=== PATIENT | female | born 1955 | race Caucasian/White ===

== ENCOUNTER 2019-06-16 10:16 | Observation (INO) | payer OTHER, SELFPAY ==
[~2019-06-16] VITALS: Ht 162.6 cm; Wt 68.0 kg
[~2019-06-16 10:16] MED LIST: CYAN3000 SL; DIAZ10TA4 PO; DISU250T PO; FOLI0.4T2 PO; FURO40TA5 PO; LACT10SO9 PO; LEVE500T19 PO; MULT-1039 PO; PANT40SU PO; POTA10TA14 PO; POTASSIUM GLUCONATE PO; PRED20TA3 PO; SPIR25TA6 PO; THIA100T78 PO
[2019-06-16 10:42] LABS: BASOPHILS % (AUTO) 0.6 % (0.0-5.0); EOSINOPHILS % (AUTO) 0.5 % (0.0-8.0); HEMATOCRIT 28.6 % (36-48); MEAN CORPUSCULAR HEMOGLOBIN 43.8 pg (27.0-33.0); MEAN CORPUSCULAR HGB CONC 34.6 g/dL (32.0-36.0); MEAN CORPUSCULAR VOLUME 126.5 fL (79-99); MONOCYTES % (AUTO) 8.1 % (3.0-13.0); NEUTROPHILS % (AUTO) 75.8 % (40.0-77.0); NUCLEATED RED BLOOD CELLS 0.1 % (0.0-0.19); PLATELET COUNT (AUTO) 142 K/uL (130-400); RED BLOOD CELL COUNT(AUTO) 2.26 MIL/uL (4.00-5.50); RED CELL DISTRIBUTION WIDTH 15.9 % (11.0-15.5); WHITE BLOOD COUNT (AUTO) 6.3 K/uL (4.8-10.8)
[2019-06-16 10:47] LABS: CREATININE 1.3 mg/dL (0.5-1.5); POTASSIUM 3.8 mmol/L (3.5-5.1)
[2019-06-16 10:50] LABS: ALANINE AMINOTRANSFERASE 95 U/L (12-78); ALBUMIN 3.1 g/dL (3.5-5.0); AMMONIA < 3 umol/L (11-32); ASPARTATE AMINOTRANSFERASE 210 U/L (10-37); BILIRUBIN,DIRECT 1.9 mg/dL (0.0-0.3); BILIRUBIN,TOTAL 3.8 mg/dL (0.2-1.0)
[2019-06-16] MEDS ORDERED: SODIUM CHLORIDE 0.9% 500ML 500 ML IV ONE (10:55)
[2019-06-16] MEDS ORDERED: ONDANSETRON HCL 4 MG/2 ML VIAL ONE (10:55)
[2019-06-16 11:10] LABS: APPEARANCE,URINE Cloudy (CLEAR); BILIRUBIN,URINE Small (NEGATIVE); COLOR,URINE Dark Yellow (YELLOW); GLUCOSE, URINE (UA) Negative (NEGATIVE); KETONES,URINE Negative (NEGATIVE); LEUKOCYTE ESTERASE ,URINE Small (NEGATIVE); NITRATE,URINE Negative (NEGATIVE); OCCULT BLOOD,URINE Large (NEGATIVE); PROTEIN,URINE Negative (NEGATIVE)
[2019-06-16 11:30] LABS: BACTERIA,URINE Few /HPF (None Seen); RBC,URINE 26-50 /HPF (0-1); SQUAMOUS EPITHELIAL CELL,UR 0-2 /HPF (0-2)
[2019-06-16 11:37] LABS: INR 1.28 (0.85-1.15); PARTIAL THROMBOPLASTIN TIME 32.4 SEC (26.3-35.5); PROTHROMBIN TIME 13.4 SEC (9.6-11.6)
[2019-06-16 13:50] VITALS: BP 119/65
[2019-06-16] MEDS ORDERED: ACETAMINOPHEN 325 MG TAB PO PRN (14:00)
[2019-06-16] MEDS ORDERED: LACTULOSE 20 GM/30 ML UDCUP PO PRN (14:00)
[2019-06-16] MEDS ORDERED: CEFTRIAXONE SODIUM 1 GM IV SCH (14:00)
[2019-06-16] MEDS ORDERED: HYDRALAZINE HCL 20 MG/ML VIAL IV PRN (14:00)
[2019-06-16 14:10] VITALS: BP 131/62
[2019-06-16 14:15] VITALS: BP 146/71
[2019-06-16 14:30] VITALS: BP 149/68
[2019-06-16 14:35] VITALS: BP 147/67
[2019-06-16] MEDS ORDERED: LACTULOSE 20 GM/30 ML UDCUP ONE (15:17)
[2019-06-16] MEDS ORDERED: MAGNESIUM CITRATE 296 ML SOLUTION ONE (15:17)
[2019-06-16] MEDS ORDERED: PANTOPRAZOLE SODIUM 40 MG TABLET.DR PO ONE (15:17)
[2019-06-16 15:36] LABS: HEMATOCRIT 25.3 % (36-48)
[2019-06-16] MEDS ORDERED: PEG 3350/NA SULF,BICARB,CL/KCL 4000 ML SOLN PO SCH (16:00)
[2019-06-16] MEDS ORDERED: CEFTRIAXONE SODIUM 1 GM ONE (19:32)
[2019-06-16] MEDS ORDERED: SODIUM CHLORIDE 0.9% 50 ML IV ONE (19:33)
[2019-06-16] MEDS ORDERED: MAG HYDROX/AL HYDROX/SIMETH ES 30 ML SUSP UDCUP ONE (21:06)
[2019-06-16 21:32] LABS: HEMATOCRIT 26.8 % (36-48)
[2019-06-17] MEDS ORDERED: CEFTRIAXONE SODIUM 1 GM ONE (07:20)
[2019-06-17] MEDS ORDERED: SODIUM CHLORIDE 0.9% 100 ML IV ONE ×2 (07:21→10:18)
[2019-06-17] MEDS ORDERED: PANTOPRAZOLE SODIUM 80 MG in SODIUM CHLORIDE 0.9% 100 ML IV SCH (09:00)
[2019-06-17] MEDS ORDERED: PROPOFOL 10 MG/ML 20ML VIAL IV ONE (13:39)
[2019-06-17] MEDS ORDERED: LIDOCAINE HCL 1% 20 ML VIAL ONE (13:40)
[2019-06-17 14:10] VITALS: BP 148/72
[2019-06-17 14:15] VITALS: BP 147/76
[2019-06-17 14:20] VITALS: BP 147/78
--- NOTE | 2019-06-17 14:20 | NUR ---
PT TOOK OFF LEADS, BP CUFF, AND PULSE OX STATED SHE DID NOT WANT MONITOR ON. RN TRIED TALKING TO PT THAT WE NEED TO MONITOR V/S SHE JUST HAD SEDATION MEDICATIONS GIVEN DURING GI PROCEDURE. PT REFUSED, STATED SHE JUST WANTS TO BE DISCHARGED. JAI WATERMAN NOTIFIED OF PT'S STATUS. ORDERS GIVEN TO SEND PT TO IN 20 MINUTES, IF SHES AWAKE AND VS ARE STABLE. Addendum: 06/17/19 at 1449 by ERUM FREITAS RN RN Amended: Links added.
--- NOTE | 2019-06-17 14:30 | NUR ---
SHRINK PIT OPERATOR GARCIA GAVE INSTRUCTIONS TO SEND PT TO [facility] FOR DISCHARGE. GARCIA CAME AND SPOKE WITH PT. PT AGREED TO GO UPSTAIRS FOR DISCHARGE. Addendum: 06/17/19 at 1500 by ERUM FREITAS RN RN Amended: Links added.
--- NOTE | 2019-06-17 15:00 | NUR ---
PATIENT WAS RECEIVED FROM PACU TRANSPORTED BY JAYLENE WELLS VIA STRETCHER. PATIENT REFUSED TO TRANSFER TO BED. SHE DEMANDS TO BE DISCHARGED RIGHT AWAY. PATIENT REFUSED VITAL SIGNS AND ADMISSION DATA BASE. SHE TOLD NUTRITIONAL CHEMIST Trish ZELAYA RN THAT SHE WILL GIVE US 30MINUTES TO DISCHARGE HER.
--- NOTE | 2019-06-17 15:10 | NUR ---
PRESCRIPTION FOR PROTONIX 40MG PO BID CALLED IN TO [facility]. SPOKE WITH DEANA.
--- NOTE | 2019-06-17 15:15 | NUR ---
DISCHARGE INSTRUCTIONS/INFORMATION GIVEN TO PATIENT. TEACH BACK METHOD USED TO EDUCATE ON F/U APPOINTMENTS SHE WILL NEED TO SEE DR. GILL ONCE AGAIN. PIV REMOVED. ALL BELONGINGS WERE PACKED.
== END 2019-06-17 15:00 | disposition home or self-care (01) ==
LOC: EDH 10:16 → INTOOBSV 13:53 → EDHIP 13:53 → 4CH 06-17 13:32
PROVIDERS: ADMIT Internal Medicine; ATTEND Internal Medicine
DX: R14.0 Abdominal distension (gaseous) (principal); R10.31 Right lower quadrant pain; R10.32 Left lower quadrant pain; K74.60 Unspecified cirrhosis of liver; R19.4 Change in bowel habit; K92.1 Melena; R63.4 Abnormal weight loss; R63.0 Anorexia; R12 Heartburn; F17.200 Nicotine dependence, unspecified, uncomplicated; Z79.899 Other long term (current) drug therapy; Z68.25 Body mass index [BMI] 25.0-25.9, adult
CPT/HCPCS: 36415 ×2; 43239; 45380; 74176; 80048; 80076; 81001; 82140; 85014 ×3; 85018 ×3; 85025; 85060; 85610; 85730; 86677; 88305 ×2; 99285; G0378 ×25; J0696 ×2; J2405; J2704; J7040; C9113

== ENCOUNTER 2019-11-08 12:19 | Emergency (ER) | payer OTHER ==
[~2019-11-08 12:19] MED LIST changes: -CYAN3000 SL; -DIAZ10TA4 PO; -DISU250T PO; -FOLI0.4T2 PO; +FOLI1TAB15 PO; -FURO40TA5 PO; -LACT10SO9 PO; -LEVE500T19 PO; -MULT-1039 PO; +MVIT PO; +NACL1 PO; -PANT40SU PO; +PANT40TA PO; -POTA10TA14 PO; -POTASSIUM GLUCONATE PO; -PRED20TA3 PO; -SPIR25TA6 PO
[2019-11-08 13:08] LABS: BASOPHILS % (AUTO) 0.6 % (0.0-5.0); EOSINOPHILS % (AUTO) 1.8 % (0.0-8.0); HEMATOCRIT 23.1 % (36-48); LYMPHOCYTES % (AUTO) 27.9 % (21.0-51.0); MEAN CORPUSCULAR HEMOGLOBIN 38.2 pg (27.0-33.0); MEAN CORPUSCULAR HGB CONC 35.1 g/dL (32.0-36.0); MONOCYTES % (AUTO) 8.9 % (3.0-13.0); NEUTROPHILS % (AUTO) 60.3 % (40.0-77.0); PLATELET COUNT (AUTO) 99 K/uL (130-400); RED BLOOD CELL COUNT(AUTO) 2.12 MIL/uL (4.00-5.50); RED CELL DISTRIBUTION WIDTH 20.5 % (11.0-15.5); WHITE BLOOD COUNT (AUTO) 6.6 K/uL (4.8-10.8)
[2019-11-08 13:19] LABS: INR 1.35 (0.85-1.15); PARTIAL THROMBOPLASTIN TIME 34.1 SEC (26.3-35.5)
[2019-11-08 13:25] LABS: ALBUMIN 2.7 g/dL (3.5-5.0); BILIRUBIN,TOTAL 5.2 mg/dL (0.2-1.0); CREATININE 0.9 mg/dL (0.5-1.5); POTASSIUM 3.1 mmol/L (3.5-5.1); TOTAL PROTEIN, SERUM 6.6 g/dL (6.0-8.3)
[2019-11-08] MEDS ORDERED: ALBUMIN (HUMAN) 25% 200 ML IV ONE (18:03)
[2019-11-08] MEDS ORDERED: POTASSIUM BICARB/CIT AC 25 MEQ TABLET.EFF ONE (18:27)
[2019-11-08] MEDS ORDERED: SODIUM CHLORIDE 0.9% 50 ML IV ONE (18:58)
[2019-11-08] MEDS ORDERED: THIAMINE HCL 100 MG/ML 2ML VIAL IM ONE (19:04)
== END 2019-11-08 19:35 | disposition home or self-care (01) ==
LOC: EDH 12:19
DX: R18.8 Other ascites (principal); K74.60 Unspecified cirrhosis of liver; D64.9 Anemia, unspecified; E87.6 Hypokalemia; E87.1 Hypo-osmolality and hyponatremia; Z98.890 Other specified postprocedural states
CPT/HCPCS: 36415; 80053; 85025; 85610; 85730; 96365; 96375; 99284; J3411; P9046

== ENCOUNTER 2019-12-28 07:52 | Inpatient (IN) | payer OTHER ==
[~2019-12-28] VITALS: Ht 180.3 cm; Wt 65.8 kg
[2019-12-28] VITALS (21 sets, daily range): BP systolic 90–119; BP diastolic 36–81
[2019-12-28 08:55] LABS: BASOPHILS % (AUTO) 0.1 % (0.0-5.0); EOSINOPHILS % (AUTO) 1.9 % (0.0-8.0); LYMPHOCYTES % (AUTO) 17.3 % (21.0-51.0); MEAN CORPUSCULAR HEMOGLOBIN 42.4 pg (27.0-33.0); MEAN CORPUSCULAR HGB CONC 34.4 g/dL (32.0-36.0); MEAN CORPUSCULAR VOLUME 123.2 fL (79-99); MONOCYTES % (AUTO) 10.8 % (3.0-13.0); NEUTROPHILS % (AUTO) 68.8 % (40.0-77.0); PLATELET COUNT (AUTO) 95 K/uL (130-400); RED BLOOD CELL COUNT(AUTO) 0.99 MIL/uL (4.00-5.50); RED CELL DISTRIBUTION WIDTH 17.2 % (11.0-15.5); WHITE BLOOD COUNT (AUTO) 7.9 K/uL (4.8-10.8)
[2019-12-28 09:05] LABS: ALBUMIN 2.1 g/dL (3.5-5.0); BILIRUBIN,TOTAL 7.5 mg/dL (0.2-1.0); CREATININE 2.6 mg/dL (0.5-1.5); TOTAL PROTEIN, SERUM 5.3 g/dL (6.0-8.3)
[2019-12-28 09:08] LABS: INR 1.66 (0.85-1.15); PARTIAL THROMBOPLASTIN TIME 43.2 SEC (26.3-35.5); PROTHROMBIN TIME 17.1 SEC (9.6-11.6)
[2019-12-28 09:09] LABS: POTASSIUM 2.9 mmol/L (3.5-5.1)
[2019-12-28 09:25] LABS: HEMATOCRIT 12.2 % (36-48)
[2019-12-28 09:31] LABS: B-TYPE NATRIURETIC PEPTIDE 729 pg/mL (0-100)
[2019-12-28] MEDS ORDERED: POTASSIUM CHLORIDE 20MEQ/100ML 100 ML IV ONE (09:44)
[2019-12-28] MEDS ORDERED: PHYTONADIONE 10 MG/1 ML AMP ONE ×2 (09:45→09:47)
[2019-12-28] MEDS ORDERED: SODIUM CHLORIDE 0.9% 100 ML IV ONE (09:52)
[2019-12-28 10:01] LABS: BASOPHILS % (MANUAL) 1 % (0-2); EOSINOPHILS % (MANUAL) 3 % (1-6); LYMPHOCYTES % (MANUAL) 10 % (22-44); MAN.DIFF COMMENT-IMPRESSION MANUAL DIFFERENTIAL; MONOCYTES % (MANUAL) 4 % (2-9); SEGMENTED NEUTROPHILS % 82 % (40-70)
[2019-12-28 10:02] LABS: PLATELET MORPHOLOGY COMMENT DECREASED
[2019-12-28] MEDS ORDERED: OCTREOTIDE ACETATE 1,250 MCG in SODIUM CHLORIDE 0.9% 250 ML IV SCH (13:00)
[2019-12-28] MEDS: FUROSEMIDE 10 MG/ML 2ML VIAL IV SCH ×2 (13:00→21:00)
--- NOTE | 2019-12-28 14:38 | NUR ---
DCP: HOME Sw met with pt who states she lives alone at [facility]. She and life partner Farooq Del Rosario [phone] have broken up, but remain friends. Pt states she has a private pay ship's carpenter daily, has no DME or in home care services. Pt states she will need a walker and shower chair at nd. pt reports frequent falls in her home. PCP is Felicia Tineo and she uses [facility] on [facility]. Plan at this time is home. Cm to follow and assist as needed Addendum: 12/28/19 at 1445 by ALY MOULTON Amended: Links added.
[2019-12-28] MEDS ORDERED: PHARMACY COMMUNICATION MISC PRN (15:15)
[2019-12-28] MEDS ORDERED: LORAZEPAM 2 MG/ML 1 ML VIAL IVP PRN (15:15)
[2019-12-28] MEDS ORDERED: CHLORDIAZEPOXIDE HCL 25 MG CAP PO PRN (15:15)
[2019-12-28] MEDS ORDERED: FUROSEMIDE 10 MG/ML 2ML VIAL ONE (15:52)
[2019-12-28] MEDS: PANTOPRAZOLE SODIUM 80 MG in SODIUM CHLORIDE 0.9% 100 ML IV SCH (18:25)
[2019-12-28] MEDS: OCTREOTIDE ACETATE 1,250 MCG in SODIUM CHLORIDE 0.9% 250 ML IV SCH (18:25)
--- NOTE | 2019-12-28 18:38 | NUR ---
PT IN NO DISTRESS- ADMISSION PROCESS COMPLETED. DID NOT KNOW DOSING OF HER MEDS. I ASKED HER TO HAVE HER FRIENDS BRING THEM FOR US TO SEE. DENIES ANY PAIN. PLAN OF CARE DISCUSSED. V/S STABLE. 2ND UNIT OF PRBC INFUSING WITH NO SIDE EFFECTS NOTED.
--- NOTE | 2019-12-28 19:04 | NUR ---
HAND OFF REPORT GIVEN TO LORELEI WELLS
--- NOTE | 2019-12-28 20:00 | NUR ---
Dr. Ballard called to advise of consult. Orders given and entered into computer.
[2019-12-28] MEDS ORDERED: SODIUM CHLORIDE 0.9% 1000ML 1,000 ML IV STA (20:03)
[2019-12-28] MEDS ORDERED: SODIUM CHLORIDE 0.9% 500ML 500 ML IV STA (20:03)
[2019-12-28] MEDS ORDERED: ALBUMIN (HUMAN) 25% 50 ML IV STA (20:03)
[2019-12-28] MEDS ORDERED: SODIUM CHLORIDE 0.9% 1000ML 1,000 ML IV ONE (20:08)
[2019-12-28] MEDS ORDERED: ALBUMIN (HUMAN) 25% 100 ML IV ONE (20:08)
[2019-12-28] MEDS: THIAMINE HCL 100 MG, FOLIC ACID 1 MG, M.V.I. IV [ADULT] 10 ML in SODIUM CHLORIDE 0.9% 1... IV SCH (20:50)
[2019-12-28] MEDS ORDERED: MAGNESIUM 2GM PREMIX 50ML 50 ML IV ONE (21:30)
[2019-12-28 21:50] LABS: ALCOHOL, BLOOD < 3 mg/dL (0-10)
[2019-12-28 22:46] LABS: CREATININE 2.7 mg/dL (0.5-1.5); POTASSIUM 3.6 mmol/L (3.5-5.1)
--- NOTE | 2019-12-28 23:00 | NUR ---
Dr. Ballard called and was updated on patient's labs. notified that patient has not urinated even after fluid bolus and medication given. Orders received and entered into computer.
[2019-12-29] VITALS (85 sets, daily range): BP systolic 95–135; BP diastolic 39–74
[2019-12-29] MEDS: PANTOPRAZOLE SODIUM 80 MG in SODIUM CHLORIDE 0.9% 100 ML IV SCH ×3 (00:24→23:20)
[2019-12-29 03:48] LABS: BASOPHILS % (AUTO) 0.5 % (0.0-5.0); EOSINOPHILS % (AUTO) 3.6 % (0.0-8.0); LYMPHOCYTES % (AUTO) 21.9 % (21.0-51.0); MEAN CORPUSCULAR HEMOGLOBIN 33.6 pg (27.0-33.0); MEAN CORPUSCULAR VOLUME 93.4 fL (79-99); NEUTROPHILS % (AUTO) 63.8 % (40.0-77.0); PLATELET COUNT (AUTO) 59 K/uL (130-400); RED BLOOD CELL COUNT(AUTO) 2.11 MIL/uL (4.00-5.50); RED CELL DISTRIBUTION WIDTH 29.4 % (11.0-15.5); WHITE BLOOD COUNT (AUTO) 5.8 K/uL (4.8-10.8)
[2019-12-29 03:56] LABS: ALBUMIN 2.3 g/dL (3.5-5.0); BILIRUBIN,TOTAL 9.3 mg/dL (0.2-1.0); CREATININE 2.6 mg/dL (0.5-1.5); HEMATOCRIT 19.7 % (36-48); MAGNESIUM 1.3 mg/dL (1.80-2.40); POTASSIUM 3.5 mmol/L (3.5-5.1); TOTAL PROTEIN, SERUM 5.2 g/dL (6.0-8.3)
[2019-12-29 04:07] LABS: APPEARANCE,URINE SL CLOUDY (CLEAR); BILIRUBIN,URINE LARGE (NEGATIVE); COLOR,URINE BROWN (YELLOW); GLUCOSE, URINE (UA) 100 mg/dL (NEGATIVE); KETONES,URINE 5 mg/dL (NEGATIVE); LEUKOCYTE ESTERASE ,URINE TRACE (NEGATIVE); NITRATE,URINE POSITIVE (NEGATIVE); OCCULT BLOOD,URINE LARGE (NEGATIVE); PROTEIN,URINE 30 mg/dL (NEGATIVE)
[2019-12-29] MEDS: MAGNESIUM 2GM PREMIX 50ML 50 ML IV PRN (04:09)
[2019-12-29 04:15] LABS: AMPHET/METH SCREEN,URINE NEGATIVE (NEGATIVE); BARBITURATE SCREEN, URINE NEGATIVE (NEGATIVE); BENZODIAZEPINES SCREEN,URINE NEGATIVE (NEGATIVE); CANNABINOID SCREEN,URINE NEGATIVE (NEGATIVE); COCAINE SCREEN,URINE NEGATIVE (NEGATIVE); OPIATE SCREEN,URINE NEGATIVE (NEGATIVE); PHENCYCLIDINE SCREEN,URINE NEGATIVE (NEGATIVE)
[2019-12-29 04:29] LABS: BACTERIA,URINE Moderate /HPF (None Seen)
[2019-12-29] MEDS ORDERED: NOREPINEPHRINE 4MG/NS 250ML 4 MG/250 ML IV.SOLN IV SCH (07:15)
[2019-12-29] MEDS ORDERED: NOREPINEPHRINE 4MG/NS 250ML IV SCH (07:30)
[2019-12-29] MEDS ORDERED: ALBUMIN (HUMAN) 25% 50 ML IV SCH (09:00)
[2019-12-29] MEDS: ALBUMIN (HUMAN) 25% 50 ML IV SCH ×3 (09:02→20:38)
[2019-12-29 14:24] LABS: CREATININE 2.4 mg/dL (0.5-1.5); POTASSIUM 3.6 mmol/L (3.5-5.1)
[2019-12-29] MEDS: THIAMINE HCL 100 MG, FOLIC ACID 1 MG, M.V.I. IV [ADULT] 10 ML in SODIUM CHLORIDE 0.9% 1... IV SCH (15:25)
[2019-12-29 16:11] LABS: HEMATOCRIT 19.3 % (36-48)
[2019-12-29] MEDS ORDERED: THIAMINE HCL 100 MG TABLET PO SCH (16:45)
[2019-12-29] MEDS ORDERED: FOLIC ACID 1 MG TABLET PO SCH (16:45)
[2019-12-29] MEDS ORDERED: LOPE2 PO (16:49)
[2019-12-29] MEDS ORDERED: ATEN25TA PO (16:49)
[2019-12-29] MEDS ORDERED: PREG50CA63 PO (16:49)
[2019-12-29] MEDS ORDERED: POTA-79 PO (16:49)
[2019-12-29] MEDS: LIDOCAINE 5% TOPICAL PATCH TP SCH (20:38)
[2019-12-29] MEDS: TEMAZEPAM 7.5 MG CAPSULE PO PRN (20:39)
[2019-12-29 23:43] LABS: HEMATOCRIT 22.6 % (36-48)
--- NOTE | 2019-12-29 23:58 | NUR ---
Dr. Campos at bedside and assessed patient. Doctor stated that she will be undergoing an EGD on 12-30-19 around 1300. Vitamin K ordered for patient. Orders entered and carried out.
[2019-12-30] VITALS (28 sets, daily range): BP systolic 98–149; BP diastolic 34–126
[2019-12-30] MEDS: PHYTONADIONE 10 MG/1 ML AMP IV SCH ×2 (00:52→23:42)
--- NOTE | 2019-12-30 02:08 | NUR ---
Patient woke up in a confused state of mind and was confused with her surroundings. Instead of using the call light, which she was informed and demonstrated on how to use, she called 911 and stated she heard voices and beeping. Staff then assured her that she was in the hospital and she was safe here. Patient reoriented and stated she is thinking clearly again. Patient needs met.
[2019-12-30 04:45] LABS: HEMATOCRIT 22.2 % (36-48); MEAN CORPUSCULAR HEMOGLOBIN 33.9 pg (27.0-33.0); MEAN CORPUSCULAR VOLUME 94.1 fL (79-99); PLATELET COUNT (AUTO) 53 K/uL (130-400); RED BLOOD CELL COUNT(AUTO) 2.36 MIL/uL (4.00-5.50); RED CELL DISTRIBUTION WIDTH 27.9 % (11.0-15.5)
[2019-12-30 04:56] LABS: INR 1.45 (0.85-1.15); PARTIAL THROMBOPLASTIN TIME 41.6 SEC (26.3-35.5)
[2019-12-30 05:04] LABS: % IRON SATURATION 104.2 % (22-44)
[2019-12-30 05:08] LABS: MAGNESIUM 1.8 mg/dL (1.80-2.40); POTASSIUM 3.3 mmol/L (3.5-5.1)
[2019-12-30 05:09] LABS: BAND NEUTROPHILS % (MANUAL) 1 % (0-2); EOSINOPHILS % (MANUAL) 2 % (1-6); LYMPHOCYTES % (MANUAL) 22 % (22-44); MAN.DIFF COMMENT-IMPRESSION MANUAL DIFFERENTIAL; MONOCYTES % (MANUAL) 6 % (2-9); SEGMENTED NEUTROPHILS % 69 % (40-70)
[2019-12-30] MEDS: POTASSIUM CHLORIDE 20MEQ/100ML 100 ML IV PRN ×2 (05:26→08:17)
[2019-12-30] MEDS: LIDOCAINE HCL-MPF 1% 2ML VIAL IV PRN (05:27)
--- NOTE | 2019-12-30 07:20 | NUR ---
IN BED, AAOX3, UNLABORED RESPIRATIONS NOTED, REMINDED ABOUT NPO STATUS FOR SCHEDULED EGD, VERBALIZES UNDERSTANDING
[2019-12-30] MEDS: MAGNESIUM 2GM PREMIX 50ML 50 ML IV PRN (07:49)
[2019-12-30] MEDS: LIDOCAINE 5% TOPICAL PATCH TP SCH (08:16)
[2019-12-30] MEDS: THIAMINE HCL 100 MG/ML 2ML VIAL IVP SCH (08:16)
[2019-12-30] MEDS: ALBUMIN (HUMAN) 25% 50 ML IV SCH ×3 (08:17→21:38)
[2019-12-30] MEDS: OCTREOTIDE ACETATE 1,250 MCG in SODIUM CHLORIDE 0.9% 250 ML IV SCH (08:18)
[2019-12-30] MEDS: PANTOPRAZOLE SODIUM 80 MG in SODIUM CHLORIDE 0.9% 100 ML IV SCH (09:59)
[2019-12-30 11:18] LABS: HEMATOCRIT 23.2 % (36-48); MEAN CORPUSCULAR HEMOGLOBIN 32.7 pg (27.0-33.0); MEAN CORPUSCULAR HGB CONC 35.3 g/dL (32.0-36.0); MEAN CORPUSCULAR VOLUME 92.4 fL (79-99); PLATELET COUNT (AUTO) 60 K/uL (130-400); RED BLOOD CELL COUNT(AUTO) 2.51 MIL/uL (4.00-5.50); RED CELL DISTRIBUTION WIDTH 27.6 % (11.0-15.5); WHITE BLOOD COUNT (AUTO) 5.6 K/uL (4.8-10.8)
[2019-12-30 11:38] LABS: ALBUMIN 3.1 g/dL (3.5-5.0); BILIRUBIN,TOTAL 10.3 mg/dL (0.2-1.0); CREATININE 1.9 mg/dL (0.5-1.5); POTASSIUM 4.1 mmol/L (3.5-5.1); TOTAL PROTEIN, SERUM 5.9 g/dL (6.0-8.3)
[2019-12-30 12:22] LABS: EOSINOPHILS % (MANUAL) 4 % (1-6); LYMPHOCYTES % (MANUAL) 20 % (22-44); MONOCYTES % (MANUAL) 11 % (2-9); SEGMENTED NEUTROPHILS % 65 % (40-70)
[2019-12-30 12:24] LABS: MAN.DIFF COMMENT-IMPRESSION MANUAL DIFFERENTIAL; PLATELET MORPHOLOGY COMMENT DECREASED
--- NOTE | 2019-12-30 14:15 | NUR ---
TRANSFERRED TO ENDOSCOPY FOR SCHEDULED EGD VIA BED
[2019-12-30] MEDS ORDERED: PROPOFOL 10 MG/ML 20ML VIAL IV ONE (14:35)
[2019-12-30] MEDS: THIAMINE HCL 100 MG, FOLIC ACID 1 MG, M.V.I. IV [ADULT] 10 ML in SODIUM CHLORIDE 0.9% 1... IV SCH (16:15)
[2019-12-30] MEDS: FOLIC ACID 1 MG TABLET PO SCH (16:21)
[2019-12-30] MEDS ORDERED: CHLORDIAZEPOXIDE HCL 10 MG CAPSULE ONE (20:14)
[2019-12-30] MEDS: CHLORDIAZEPOXIDE HCL 25 MG CAP PO SCH (21:36)
[2019-12-31] VITALS (11 sets, daily range): BP systolic 117–155; BP diastolic 48–77
[2019-12-31 04:20] LABS: MEAN CORPUSCULAR HEMOGLOBIN 34.4 pg (27.0-33.0); MEAN CORPUSCULAR HGB CONC 35.8 g/dL (32.0-36.0); PLATELET COUNT (AUTO) 77 K/uL (130-400); RED CELL DISTRIBUTION WIDTH 28.4 % (11.0-15.5)
[2019-12-31 04:25] LABS: ALBUMIN 3.5 g/dL (3.5-5.0); BILIRUBIN,TOTAL 12.1 mg/dL (0.2-1.0); CREATININE 1.6 mg/dL (0.5-1.5); TOTAL PROTEIN, SERUM 6.4 g/dL (6.0-8.3)
[2019-12-31 04:45] LABS: BAND NEUTROPHILS % (MANUAL) 3 % (0-2); LYMPHOCYTES % (MANUAL) 10 % (22-44); MAN.DIFF COMMENT-IMPRESSION MANUAL DIFFERENTIAL; MONOCYTES % (MANUAL) 5 % (2-9); SEGMENTED NEUTROPHILS % 82 % (40-70)
[2019-12-31 04:46] LABS: PLATELET MORPHOLOGY COMMENT DECREASED
--- NOTE | 2019-12-31 05:03 | NUR ---
EMERGING SOLUTIONS EXECUTIVE CALL C/O SOB. SATS 94 -96% ON 2LNC. CALL PLACED TO DMITRY HAMPTON NP AND INFORMED OF THIS . ORDERS RECEIVED AND CARRIED OUT.
[2019-12-31] MEDS ORDERED: IPRATROPIUM/ALBUTEROL SULFATE 3 ML SOLUTION IH ONE (05:17)
[2019-12-31] MEDS: CEFTRIAXONE SODIUM 2 GM VIAL IVP SCH (07:56)
[2019-12-31] MEDS: THIAMINE HCL 100 MG/ML 2ML VIAL IVP SCH (07:57)
[2019-12-31] MEDS: PANTOPRAZOLE SODIUM 40 MG TABLET.DR PO SCH (07:58)
[2019-12-31] MEDS: FOLIC ACID 1 MG TABLET PO SCH (07:58)
[2019-12-31] MEDS: ALBUMIN (HUMAN) 25% 50 ML IV SCH ×3 (08:01→20:05)
[2019-12-31] MEDS: LIDOCAINE 5% TOPICAL PATCH TP SCH (08:08)
[2019-12-31] MEDS: CHLORDIAZEPOXIDE HCL 25 MG CAP PO SCH ×3 (08:08→20:18)
--- NOTE | 2019-12-31 11:15 | NUR ---
REPORT GIVEN TO SAMANTHA SARMIENTO RN. TRANSFERRED TO ROOM 231 VIA BED
--- NOTE | 2019-12-31 11:20 | NUR ---
ARRIVAL TO FLOOR ROOM 231 TRANSFER FROM ROOM 209. PT IS AWAKE AND ALERT. TELE IS ON PATIENT.
[2019-12-31 11:33] LABS: RETICULOCYTE % (AUTO) 3.08 % (0.42-2.23)
[2019-12-31 12:12] LABS: AMMONIA 63 umol/L (11-32)
[2019-12-31 13:04] LABS: % IRON SATURATION 53.2 % (22-44)
[2019-12-31] MEDS: LACTULOSE 20 GM/30 ML UDCUP PO SCH ×2 (13:21→20:18)
[2019-12-31] MEDS: RIFAXIMIN 200 MG TABLET PO SCH ×2 (13:21→20:19)
--- NOTE | 2019-12-31 13:40 | NUR ---
STATUS RESTING IN BED, DRANK MINIMAL AMOUNT OF LACTULOSE, STATES SHE DOESN'T WANT IT. DENIES CP DENIES SOB. BREATHING PATTERN IS EVEN AND UNLABORED. DOOR AJAR BLINDS OPEN, CALL LIGHT WITHIN REACH.
[2019-12-31] MEDS ORDERED: ACETAMINOPHEN 325 MG TAB ONE (20:16)
[2019-12-31] MEDS ORDERED: ACETAMINOPHEN 325 MG TAB PO ONE (20:45)
[2020-01-01] MEDS: PHYTONADIONE 10 MG/1 ML AMP IV SCH (01:08)
[2020-01-01 03:00] VITALS: BP 107/54
[2020-01-01 03:57] VITALS: BP 155/80
[2020-01-01 05:01] LABS: BASOPHILS % (AUTO) 0.3 % (0.0-5.0); EOSINOPHILS % (AUTO) 2.1 % (0.0-8.0); HEMATOCRIT 23.1 % (36-48); LYMPHOCYTES % (AUTO) 14.6 % (21.0-51.0); MEAN CORPUSCULAR HEMOGLOBIN 32.4 pg (27.0-33.0); MEAN CORPUSCULAR HGB CONC 34.2 g/dL (32.0-36.0); MEAN CORPUSCULAR VOLUME 94.7 fL (79-99); MONOCYTES % (AUTO) 9.5 % (3.0-13.0); NEUTROPHILS % (AUTO) 72.2 % (40.0-77.0); PLATELET COUNT (AUTO) 65 K/uL (130-400); RED BLOOD CELL COUNT(AUTO) 2.44 MIL/uL (4.00-5.50); WHITE BLOOD COUNT (AUTO) 6.2 K/uL (4.8-10.8)
[2020-01-01 05:18] LABS: CREATININE 1.7 mg/dL (0.5-1.5); POTASSIUM 3.9 mmol/L (3.5-5.1); THYROID STIMULATING HORMONE 1.22 uIU/mL (0.36-3.74); URIC ACID 11.9 mg/dL (2.6-7.2)
[2020-01-01] MEDS: CHLORDIAZEPOXIDE HCL 25 MG CAP PO SCH ×3 (07:21→21:00)
[2020-01-01] MEDS: PANTOPRAZOLE SODIUM 40 MG TABLET.DR PO SCH (07:21)
[2020-01-01] MEDS: THIAMINE HCL 100 MG/ML 2ML VIAL IVP SCH (07:21)
[2020-01-01] MEDS: ALBUMIN (HUMAN) 25% 50 ML IV SCH (07:21)
[2020-01-01] MEDS: LACTULOSE 20 GM/30 ML UDCUP PO SCH ×3 (07:21→21:55)
[2020-01-01] MEDS: CEFTRIAXONE SODIUM 2 GM VIAL IVP SCH (07:21)
[2020-01-01] MEDS: FOLIC ACID 1 MG TABLET PO SCH (07:21)
[2020-01-01 07:30] VITALS: BP 126/61
--- NOTE | 2020-01-01 08:00 | NUR ---
ASSESSMENT PT IS AAOX3 DENIES CP DENIES SOB DENIES NV NO COMPLAINTS AT THIS TIME. RESTING IN BED. CALL LIGHT WITHIN REACH. AM MEDS TAKEN WITH NO ISSUES.
[2020-01-01] MEDS: RIFAXIMIN 200 MG TABLET PO SCH ×3 (08:24→21:56)
[2020-01-01] MEDS: LIDOCAINE 5% TOPICAL PATCH TP SCH (08:25)
[2020-01-01 09:23] LABS: HEMATOCRIT 23.7 % (36-48); MEAN CORPUSCULAR HEMOGLOBIN 32.4 pg (27.0-33.0); MEAN CORPUSCULAR HGB CONC 34.2 g/dL (32.0-36.0); MEAN CORPUSCULAR VOLUME 94.8 fL (79-99); PLATELET COUNT (AUTO) 58 K/uL (130-400); RED CELL DISTRIBUTION WIDTH 28.1 % (11.0-15.5); WHITE BLOOD COUNT (AUTO) 5.8 K/uL (4.8-10.8)
[2020-01-01 09:45] LABS: ALBUMIN 3.1 g/dL (3.5-5.0); BILIRUBIN,TOTAL 9.9 mg/dL (0.2-1.0); CREATININE 1.7 mg/dL (0.5-1.5); POTASSIUM 3.9 mmol/L (3.5-5.1); TOTAL PROTEIN, SERUM 5.9 g/dL (6.0-8.3)
[2020-01-01 11:30] VITALS: BP 115/53
[2020-01-01 12:33] LABS: BAND NEUTROPHILS % (MANUAL) 2 % (0-2); BASOPHILS % (MANUAL) 1 % (0-2); LYMPHOCYTES % (MANUAL) 4 % (22-44); MONOCYTES % (MANUAL) 4 % (2-9); SEGMENTED NEUTROPHILS % 89 % (40-70)
[2020-01-01 12:34] LABS: MAN.DIFF COMMENT-IMPRESSION MANUAL DIFFERENTIAL; PLATELET MORPHOLOGY COMMENT DECREASED
--- NOTE | 2020-01-01 13:04 | NUR ---
LIBRIUM NOT GIVEN PT IS RESTING, ASLEEP. BREATHING PATTERN IS EVEN AND UNLABORED. NO VISIBLE SIGNS OF DISTRESS NOTED.
--- NOTE | 2020-01-01 13:15 | NUR ---
VISITORS AT BEDSIDE
--- NOTE | 2020-01-01 14:30 | NUR ---
BM ACHIEVED COMPLETE KERRY CARE GIVEN.
[2020-01-01 15:30] VITALS: BP 132/58
--- NOTE | 2020-01-01 17:20 | NUR ---
STATUS RESTING IN BED, BREATHING PATTERN IS EVEN AND UNLABORED. DOOR AJAR, BLINDS OPEN. SIDE RAILS UP X4, CALL LIGHT WITHIN REACH.
--- NOTE | 2020-01-01 18:01 | NUR ---
CM NOTE CM attempted to speak to pt about d/c planning to rehab. Pt agreed to plan but unable to make decisions about facilities. Pt gave CM verbal consent to speak to Farooq Johnson on facesheet. CM called Farooq and states pt has MPOA and will be calling CM back with contact information. CM to f/u.
--- NOTE | 2020-01-01 18:24 | NUR ---
CM NOTE/MPOA CM received phone call from Yoko Prado. [facility] she is pts MPOA and provided phone number [phone]. [facility] pt has been through something similar medically in the past in 2017. [facility] she plans on taking pt home with her in [place]. CM explained plan per physicians will be rehab prior to returning home. CM asked Yoko to send CM copy of MPOA paperwork. [facility] she is currently looking for copy and will send as soon as possible. [facility] she plans on coming to hospital on Thursday between 12-1 pm. Also reported concerns over friend on facesheet Farooq Johnson. CM explained decisions will be made through designated MPOA and not friend on facesheet. [facility] current paperwork has herself (Yoko) as second designee and first designee is Bailey Du. CM explained that MPOA will be reviewed and followed as printed unless first designee relinquishes decision making. Verbalized understanding. [facility] she will be providing copy for hospital to review. CM to follow up.
[2020-01-01 20:21] VITALS: BP 125/61
[2020-01-02] VITALS (7 sets, daily range): BP systolic 131–140; BP diastolic 56–73
[2020-01-02 04:54] LABS: BASOPHILS % (AUTO) 0.5 % (0.0-5.0); EOSINOPHILS % (AUTO) 3.5 % (0.0-8.0); HEMATOCRIT 23.7 % (36-48); LYMPHOCYTES % (AUTO) 16.6 % (21.0-51.0); MEAN CORPUSCULAR HEMOGLOBIN 33.1 pg (27.0-33.0); MEAN CORPUSCULAR HGB CONC 34.6 g/dL (32.0-36.0); MEAN CORPUSCULAR VOLUME 95.6 fL (79-99); MONOCYTES % (AUTO) 10.4 % (3.0-13.0); NEUTROPHILS % (AUTO) 67.2 % (40.0-77.0); PLATELET COUNT (AUTO) 62 K/uL (130-400); RED BLOOD CELL COUNT(AUTO) 2.48 MIL/uL (4.00-5.50); RED CELL DISTRIBUTION WIDTH 28.8 % (11.0-15.5)
[2020-01-02 05:07] LABS: CREATININE 1.6 mg/dL (0.5-1.5); POTASSIUM 3.8 mmol/L (3.5-5.1)
[2020-01-02] MEDS: THIAMINE HCL 100 MG/ML 2ML VIAL IVP SCH (10:04)
[2020-01-02] MEDS: CEFTRIAXONE SODIUM 2 GM VIAL IVP SCH (10:04)
[2020-01-02] MEDS: CHLORDIAZEPOXIDE HCL 25 MG CAP PO SCH ×3 (10:04→13:25)
[2020-01-02] MEDS: FOLIC ACID 1 MG TABLET PO SCH (10:04)
[2020-01-02] MEDS: LACTULOSE 20 GM/30 ML UDCUP PO SCH ×3 (10:04→20:00)
[2020-01-02] MEDS: PANTOPRAZOLE SODIUM 40 MG TABLET.DR PO SCH (10:04)
[2020-01-02] MEDS: RIFAXIMIN 200 MG TABLET PO SCH ×3 (10:05→21:39)
[2020-01-02] MEDS: LIDOCAINE 5% TOPICAL PATCH TP SCH (10:06)
--- NOTE | 2020-01-02 14:00 | NUR ---
HELD 2PM LIBRIUM DOSE DUE TO PT BEING DROWSY, ABLE TO OPEN EYES AFTER TAPPING ON HER SHOULDER AND CLOSES THEM RAPIDLY. REPORTED TO DR. ANNE. WILL CONTINUE TO MONITOR.
--- NOTE | 2020-01-02 15:30 | NUR ---
PT AWAKE, WATCHING TV AND EATING YOGURT. APPEARS COMFORTABLE.
--- NOTE | 2020-01-02 18:00 | NUR ---
REPORT CALLED TO PRISCILLA HERNANDEZ AND WILL TRANSFER PT TO ROOM 303 VIA BED.
[2020-01-02] MEDS: PHYTONADIONE 10 MG/1 ML AMP IV SCH ×2 (20:01)
[2020-01-02] MEDS: IPRATROPIUM/ALBUTEROL SULFATE 3 ML SOLUTION IH PRN (20:19)
[2020-01-03] MEDS: IPRATROPIUM/ALBUTEROL SULFATE 3 ML SOLUTION IH PRN ×5 (01:39→18:33)
[2020-01-03 03:18] VITALS: BP 134/60
[2020-01-03 06:03] LABS: BASOPHILS % (AUTO) 0.6 % (0.0-5.0); EOSINOPHILS % (AUTO) 3.3 % (0.0-8.0); HEMATOCRIT 21.5 % (36-48); LYMPHOCYTES % (AUTO) 16.6 % (21.0-51.0); MEAN CORPUSCULAR HEMOGLOBIN 33.8 pg (27.0-33.0); MEAN CORPUSCULAR HGB CONC 34.9 g/dL (32.0-36.0); MEAN CORPUSCULAR VOLUME 96.8 fL (79-99); MONOCYTES % (AUTO) 9.6 % (3.0-13.0); NEUTROPHILS % (AUTO) 67.9 % (40.0-77.0); PLATELET COUNT (AUTO) 58 K/uL (130-400); RED BLOOD CELL COUNT(AUTO) 2.22 MIL/uL (4.00-5.50); RED CELL DISTRIBUTION WIDTH 28.8 % (11.0-15.5); WHITE BLOOD COUNT (AUTO) 4.9 K/uL (4.8-10.8)
[2020-01-03 06:18] LABS: INR 1.46 (0.85-1.15); PARTIAL THROMBOPLASTIN TIME 40.8 SEC (26.3-35.5); PROTHROMBIN TIME 15.1 SEC (9.6-11.6)
[2020-01-03 06:19] LABS: BILIRUBIN,TOTAL 7.9 mg/dL (0.2-1.0); CARBON DIOXIDE 29 mmol/L (21-32); CHLORIDE 95 mmol/L (101-111); CREATININE 1.2 mg/dL (0.5-1.5); GLOMERULAR FILTR. RATE CALC 48 mL/min (>60); GLUCOSE,RANDOM 124 mg/dL (70-105); POTASSIUM 3.4 mmol/L (3.5-5.1); SODIUM SERUM 131 mmol/L (136-145)
[2020-01-03 06:22] LABS: AMMONIA < 3 umol/L (11-32)
[2020-01-03 06:40] LABS: UREA NITROGEN, BLOOD 29 mg/dL (7-18)
[2020-01-03 07:23] VITALS: BP 130/83
--- NOTE | 2020-01-03 08:59 | NUR ---
DC PLAN VISITED WITH PATIENT. SPOKE TO PATIENT SEEMED A BIT CONFUSED. SPOKE TO GENTLEMAN. SAID HE IS NOT POA AND DID NOT WANT TO BE MAKING DECISIONS. SAID [facility] IS THE POA. EXPLAINED THAT WE WERE ALREADY IN CONTACT WITH SANDE[facility]. HE SAID THAT SHE IS ON HER WAY DOWN TO TAKE PATIENT BACK NORTH WITH HER. PENDING CALL BACK TO DISCUSS PLAN. Addendum: 01/03/20 at 0905 by STEPHEN CARTAGENA RN CM Amended: Links added.
[2020-01-03] MEDS: LACTULOSE 20 GM/30 ML UDCUP PO SCH ×3 (09:00→22:35)
[2020-01-03] MEDS: RIFAXIMIN 200 MG TABLET PO SCH ×3 (09:28→22:35)
[2020-01-03] MEDS: CEFTRIAXONE SODIUM 2 GM VIAL IVP SCH (09:28)
[2020-01-03] MEDS: LIDOCAINE 5% TOPICAL PATCH TP SCH (09:29)
[2020-01-03] MEDS: FOLIC ACID 1 MG TABLET PO SCH (09:29)
[2020-01-03] MEDS: PANTOPRAZOLE SODIUM 40 MG TABLET.DR PO SCH (09:29)
[2020-01-03] MEDS: THIAMINE HCL 100 MG/ML 2ML VIAL IVP SCH (09:29)
[2020-01-03 10:59] VITALS: BP 145/62
--- NOTE | 2020-01-03 13:00 | NUR ---
CM NOTE POA CALLED, LIS REY [phone]. MADE AWARE OF NEW REFERRAL FOR REHAB. PER POA, PAT[place] AND POA IS PLANNING ON BRINGING HER BACK TO [place] TO STAY WITH HER. PER POA, IS PLANNING ON TRAVELING TELEPHOTO ENGINEER PATIENT ON Thursday01/13/2020 AND SHOULD BE ARRIVING AFTER LUNCH TIME. POA AGREEABLE TO REHAB IN [place], OFFERED TO SEE WHICH FACILITY IS IN NETWORK WITH [facility], BJ AGREED. WILL FOLLOW UP WITH INSURANCE AND SEE IF PATIENT ABLE TO BE SET UP WITH REHAB. CONVERSATIONS BETWEEN BJ AND I EXPLAINED AND GIVEN TO PRIMARY NURSE, DAVID WELLS AND DR. CURRAN.
--- NOTE | 2020-01-03 13:00 | NUR ---
DR. THORNTON MD HERE TO SEE PATIENT. SPOKE TO PATIENT REGARDING NEED FOR LIVER BIOPSY OF LIVER MASS. PATIENT TOLD DR. THORNTON THAT SHE HAS HAD A LIVER BIOPSY IN THE PAST. DR. THORNTON ASKED TO CONSULT PATIENTS GI DOCTOR AT THAT TIME TO OBTAIN FURTHER INFORMATION REGARDING HISTORY OF LIVER BIOPSY.
--- NOTE | 2020-01-03 14:00 | NUR ---
DR. HERRERA SPOKE TO DR. THORNTON TO REPORT THAT PATIENTS MEDICAL RECORDS FROM JANUARY [address]IC[address] SHARON CAMACHO WAS REFERRING PHYSICIAN THAT PLACED ORDER TO LIVER MASS BIOPSY AND INFORMED DR. THORNTON OF SURGICAL PATHOLOGY REPORT FROM LIVER BIOPST IN JANUARY 2017. DR. THORNTON ASKED TO PLACE CONSULT WITH DR. HERRERA. SPOKE TO DR. HERRERA VIA TELEPHONE AND MD TOLD ME TO GIVE HER PATIENTS NAME AND DATE OF AND SHE WOULD OBTAIN INFORMATION ABOUT PATIENT WHEN SHE RETURNED TO HER OFFICE.
--- NOTE | 2020-01-03 15:51 | NUR ---
RDSCREEN - LOS X 6 Pt admitted for symptomatic anemia. Pt with possible metastatic mass on liver, as per EMR. Pt with breathing Tx at time of visit. Pt tolerating GI soft Moody diet with no report of GI distress, PO intake at 50%. Pt LBM . Recommend to continue current diet order. Pt with Hx of Cirrhosis. Pt with acute renal failure with stable Cr levels, as per EMR. Pt also with severe FTT. Pt monitored labs: Hgb 7.5, Na 131, K 3.4, Cl 95, BUN 29. RD to continue to monitor. Please notify RD as additional nutrition concerns arise. Thank you. Addendum: 01/03/20 at [address] Amended: Links added.
[2020-01-03 15:53] VITALS: BP 126/64
[2020-01-03 19:07] VITALS: BP 130/55
[2020-01-03] MEDS: PHYTONADIONE 10 MG/1 ML AMP IV SCH (20:34)
[2020-01-03] MEDS: POTASSIUM CHLORIDE 10% ELIXIR 20 MEQ/15 ML UDCUP PO PRN (22:36)
[2020-01-03 23:16] VITALS: BP 147/71
[2020-01-04] MEDS: IPRATROPIUM/ALBUTEROL SULFATE 3 ML SOLUTION IH PRN ×4 (01:47→19:16)
[2020-01-04 04:00] VITALS: BP 133/62
[2020-01-04 08:00] VITALS: BP 133/65
[2020-01-04] MEDS: LACTULOSE 20 GM/30 ML UDCUP PO SCH ×3 (09:00→20:15)
[2020-01-04] MEDS: FOLIC ACID 1 MG TABLET PO SCH (10:30)
[2020-01-04] MEDS: RIFAXIMIN 200 MG TABLET PO SCH ×3 (10:30→20:15)
[2020-01-04] MEDS: LIDOCAINE 5% TOPICAL PATCH TP SCH (10:31)
[2020-01-04] MEDS: PANTOPRAZOLE SODIUM 40 MG TABLET.DR PO SCH (10:31)
[2020-01-04] MEDS: THIAMINE HCL 100 MG/ML 2ML VIAL IVP SCH (10:31)
[2020-01-04] MEDS: CEFTRIAXONE SODIUM 2 GM VIAL IVP SCH (10:31)
[2020-01-04 12:00] VITALS: BP 136/62
[2020-01-04 16:00] VITALS: BP 133/60
--- NOTE | 2020-01-04 17:00 | NUR ---
CM NOTE MEET WITH PATIENT IN ROOM, NOTED SLOW MOVEMENTS AND SLOW SPEECH, INCREASE IN JAUNDICE. DR. CURRAN MADE AWARE, OK FOR REPEAT LABWORK. PATIENT MADE AWARE OF DC PLANNING AND POSSIBLE REHAB. PER PATIENT, WOULD LIKE TO RETURN HOME. PATIENT IS UNABLE TO GET OOB TO CHAIR ON HER OWN AND REQUIRES X2 MAX ASSIST. POA CALLED AND MADE AWARE OF PATIENT WISHES, POA STATES THIS IS A HISTORY THAT SHE HAS. STATES " SHE WAS IN [place] AND WAS LEFT THERE TO AND I BROUGHT HER WITH ME TO [place] TO GET HER BETTER AND SHE IMPROVED SO SHE MOVED DOWN TO [place] AGAIN AND STARTED DRINKING". SHE STATES THAT HER PLAN IS THE SAME, TO DRIVE DOWN ON THURSDAY AND HAVE HER DISCHARGE FROM HOSPITAL THEN DRIVE HER TO [place] TO LIVE WITH HER. MEDICAL POWER OF STEEL HANDLER TO BE EMAILED TO ME PER BJ. WILL FOLLOW UP ACCORDINGLY, CONVERSATIONS WITH POA AND PATIENT TOLD TO PRIMARY NURSE, RADHA WELLS.
--- NOTE | 2020-01-04 17:09 | NUR ---
DCP: THURSDAY home with friend/POA CALLED, LIS WILSON [phone] Eric met with pt and neighbor Ofe Lorenzana [phone] who was at bedside. I asked pt what her dcp was and she stated she was staying till Thursday. I asked why thursday? Neighbor states we just got off the phone with her friend Lis Wilson who is taking pt home with her till she gets better. Pt got teary. Neighbor asked, "what's wrong? Don't you want to go? Pt said, no, but I will". Neighbor encouraged pt to go with Lis. "Don't you remember how good you looked and felt after you stayed with Lis the last?" "Don't you want to feel like that again?" Eric asked pt, so then you are agreeable to going with Lis on thursday when she comes to pick you up? "yes" Neighbor states that she will call Sw tomorrow to see if there is anything pt needs or wants brought to hospital when neighbor visits.
[2020-01-04 19:35] VITALS: BP 146/70
[2020-01-05] VITALS: BP 133/73
[2020-01-05] MEDS: PHYTONADIONE 10 MG/1 ML AMP IV SCH
[2020-01-05 04:11] VITALS: BP 135/68
[2020-01-05 05:57] LABS: BASOPHILS % (AUTO) 1.1 % (0.0-5.0); EOSINOPHILS % (AUTO) 5.1 % (0.0-8.0); HEMATOCRIT 24.6 % (36-48); LYMPHOCYTES % (AUTO) 18.8 % (21.0-51.0); MEAN CORPUSCULAR HEMOGLOBIN 32.3 pg (27.0-33.0); MEAN CORPUSCULAR HGB CONC 32.5 g/dL (32.0-36.0); MEAN CORPUSCULAR VOLUME 99.2 fL (79-99); MONOCYTES % (AUTO) 8.6 % (3.0-13.0); NEUTROPHILS % (AUTO) 64.2 % (40.0-77.0); PLATELET COUNT (AUTO) 56 K/uL (130-400); RED BLOOD CELL COUNT(AUTO) 2.48 MIL/uL (4.00-5.50); RED CELL DISTRIBUTION WIDTH 29.7 % (11.0-15.5); WHITE BLOOD COUNT (AUTO) 4.5 K/uL (4.8-10.8)
[2020-01-05 06:07] LABS: ALBUMIN 2.7 g/dL (3.5-5.0); BILIRUBIN,TOTAL 7.6 mg/dL (0.2-1.0); CREATININE 0.8 mg/dL (0.5-1.5); POTASSIUM 3.5 mmol/L (3.5-5.1); TOTAL PROTEIN, SERUM 5.8 g/dL (6.0-8.3)
[2020-01-05] MEDS: IPRATROPIUM/ALBUTEROL SULFATE 3 ML SOLUTION IH PRN ×2 (07:13→17:19)
[2020-01-05 07:40] VITALS: BP 126/68
[2020-01-05] MEDS: THIAMINE HCL 100 MG/ML 2ML VIAL IVP SCH (08:46)
[2020-01-05] MEDS: LACTULOSE 20 GM/30 ML UDCUP PO SCH ×4 (08:46→20:59)
[2020-01-05] MEDS: FOLIC ACID 1 MG TABLET PO SCH (08:46)
[2020-01-05] MEDS: PANTOPRAZOLE SODIUM 40 MG TABLET.DR PO SCH (08:46)
[2020-01-05] MEDS: CEFTRIAXONE SODIUM 2 GM VIAL IVP SCH (08:46)
[2020-01-05] MEDS: LIDOCAINE 5% TOPICAL PATCH TP SCH ×2 (08:47→09:00)
[2020-01-05] MEDS: RIFAXIMIN 200 MG TABLET PO SCH ×3 (08:47→22:43)
[2020-01-05 11:23] VITALS: BP 139/68
--- NOTE | 2020-01-05 13:00 | NUR ---
CM NOTE CALLED [facility], SPOKE WITH ZAFAR. PER ZAFAR, PATIENT HAS NOT MEET DEDUCTIBLE OF 6,000 AND WILL BE RESPONSIBLE FOR PAYMENT IF SHE WANTS TO GO TO SNF OR HOME HEALTH. PER ZAFAR, HAS ONLY MET $1,692.37. REFERENCE CASE #[id number]. BJ, LIS REY, CALLED AND INFORMATION GIVEN. PER BJ, WANTS TO KNOW IF PROVIDER CAN BE FOUND AND SHANKAR OR JUAN GONZALEZ, WILL FOLLOW UP WITH INSURANCE FOR PROVIDER SERVICES.
[2020-01-05 16:20] VITALS: BP 128/50
[2020-01-05 20:00] VITALS: BP 143/60
[2020-01-06] VITALS (7 sets, daily range): BP systolic 132–146; BP diastolic 67–73
[2020-01-06] MEDS: PHYTONADIONE 10 MG/1 ML AMP IV SCH
[2020-01-06 05:14] LABS: BASOPHILS % (AUTO) 0.9 % (0.0-5.0); EOSINOPHILS % (AUTO) 5.7 % (0.0-8.0); HEMATOCRIT 23.6 % (36-48); LYMPHOCYTES % (AUTO) 18.4 % (21.0-51.0); MEAN CORPUSCULAR HEMOGLOBIN 32.2 pg (27.0-33.0); MEAN CORPUSCULAR HGB CONC 32.6 g/dL (32.0-36.0); MEAN CORPUSCULAR VOLUME 98.7 fL (79-99); MONOCYTES % (AUTO) 10.3 % (3.0-13.0); NEUTROPHILS % (AUTO) 62.6 % (40.0-77.0); PLATELET COUNT (AUTO) 77 K/uL (130-400); RED BLOOD CELL COUNT(AUTO) 2.39 MIL/uL (4.00-5.50); RED CELL DISTRIBUTION WIDTH 29.7 % (11.0-15.5); WHITE BLOOD COUNT (AUTO) 5.8 K/uL (4.8-10.8)
[2020-01-06 05:35] LABS: ALBUMIN 2.6 g/dL (3.5-5.0); BILIRUBIN,TOTAL 6.4 mg/dL (0.2-1.0); CREATININE 0.8 mg/dL (0.5-1.5); POTASSIUM 3.3 mmol/L (3.5-5.1); TOTAL PROTEIN, SERUM 5.8 g/dL (6.0-8.3)
[2020-01-06] MEDS: POTASSIUM CHLORIDE 10% ELIXIR 20 MEQ/15 ML UDCUP PO PRN ×2 (06:06→18:13)
[2020-01-06] MEDS: IPRATROPIUM/ALBUTEROL SULFATE 3 ML SOLUTION IH PRN ×2 (06:56→18:26)
[2020-01-06] MEDS: CEFTRIAXONE SODIUM 2 GM VIAL IVP SCH (09:29)
[2020-01-06] MEDS: LACTULOSE 20 GM/30 ML UDCUP PO SCH ×3 (09:29→21:00)
[2020-01-06] MEDS: FOLIC ACID 1 MG TABLET PO SCH (09:30)
[2020-01-06] MEDS: LIDOCAINE 5% TOPICAL PATCH TP SCH ×2 (09:30→09:39)
[2020-01-06] MEDS: THIAMINE HCL 100 MG/ML 2ML VIAL IVP SCH (09:30)
[2020-01-06] MEDS: RIFAXIMIN 200 MG TABLET PO SCH ×3 (09:30→21:08)
[2020-01-06] MEDS: PANTOPRAZOLE SODIUM 40 MG TABLET.DR PO SCH (09:30)
[2020-01-06] MEDS: FUROSEMIDE 40 MG TABLET PO SCH (18:13)
--- NOTE | 2020-01-06 18:13 | NUR ---
CM NOTE MEET WITH PATIENT AND POA, LIS REY IN PATIENT ROOM. DISCUSSED OPTIONS BASED ON INSURANCE. PATIENT WOULD HAVE TO MEET DEDUCTIBLE OF $6,000 IN ORDER TO NOT HAVE TO BE RESPONSIBLE FOR PAYMENT AT SNF OR . POA INTERESTED IN PALLATIVE VS HOSPICE CARE. DR. ANNE MADE AWARE OF PATIENT EXPRESSING PALLATIVE INTEREST. MD TO DISCUSS OPTIONS WITH PATIENT AND POA. CASE REFERENCE NUMBER GIVEN TO POA TO FOLLOW UP WITH [employer]. PATIENT REQUIRING OXYGEN AT THE MOMENT DUE TO O2 SAT OF 88%, DR. ANNE MADE AWARE.
[2020-01-06] MEDS: POTASSIUM CHLORIDE 20 MEQ ERTAB PO PRN (18:16)
[2020-01-06] MEDS: PHYTONADIONE 10 MG/1 ML AMP SQ SCH (18:21)
[2020-01-06] MEDS: SPIRONOLACTONE 25 MG TAB PO SCH (21:08)
[2020-01-07 03:29] VITALS: BP 142/67
[2020-01-07 05:27] LABS: BASOPHILS % (AUTO) 0.9 % (0.0-5.0); EOSINOPHILS % (AUTO) 4.4 % (0.0-8.0); HEMATOCRIT 23.2 % (36-48); LYMPHOCYTES % (AUTO) 17.6 % (21.0-51.0); MEAN CORPUSCULAR HEMOGLOBIN 32.5 pg (27.0-33.0); MEAN CORPUSCULAR HGB CONC 32.3 g/dL (32.0-36.0); MEAN CORPUSCULAR VOLUME 100.4 fL (79-99); MONOCYTES % (AUTO) 9.5 % (3.0-13.0); NEUTROPHILS % (AUTO) 66.3 % (40.0-77.0); NUCLEATED RED BLOOD CELLS 0.4 % (0.0-0.19); PLATELET COUNT (AUTO) 63 K/uL (130-400); RED BLOOD CELL COUNT(AUTO) 2.31 MIL/uL (4.00-5.50); RED CELL DISTRIBUTION WIDTH 30.1 % (11.0-15.5); WHITE BLOOD COUNT (AUTO) 5.5 K/uL (4.8-10.8)
[2020-01-07 05:44] LABS: INR 1.33 (0.85-1.15); PARTIAL THROMBOPLASTIN TIME 32.9 SEC (26.3-35.5); PROTHROMBIN TIME 14.2 SEC (9.6-11.6)
[2020-01-07 05:57] LABS: ALANINE AMINOTRANSFERASE 49 U/L (12-78); ALBUMIN 2.5 g/dL (3.5-5.0); ASPARTATE AMINOTRANSFERASE 125 U/L (10-37); BILIRUBIN,TOTAL 6.7 mg/dL (0.2-1.0); CARBON DIOXIDE 32 mmol/L (21-32); CHLORIDE 104 mmol/L (101-111); CREATININE 0.8 mg/dL (0.5-1.5); GLOMERULAR FILTR. RATE CALC 77 mL/min (>60); GLUCOSE,RANDOM 110 mg/dL (70-105); PHOSPHORUS 3.6 mg/dL (2.5-4.9); POTASSIUM 3.9 mmol/L (3.5-5.1); SODIUM SERUM 141 mmol/L (136-145); TOTAL PROTEIN, SERUM 5.9 g/dL (6.0-8.3); UREA NITROGEN, BLOOD 20 mg/dL (7-18)
[2020-01-07 06:02] LABS: AMMONIA < 10 umol/L (11-32)
[2020-01-07] MEDS: IPRATROPIUM/ALBUTEROL SULFATE 3 ML SOLUTION IH PRN ×2 (07:12→18:20)
[2020-01-07 08:18] VITALS: BP 152/72
[2020-01-07] MEDS: CEFTRIAXONE SODIUM 2 GM VIAL IVP SCH (08:31)
[2020-01-07] MEDS: THIAMINE HCL 100 MG/ML 2ML VIAL IVP SCH (08:31)
[2020-01-07] MEDS: LACTULOSE 20 GM/30 ML UDCUP PO SCH ×3 (08:31→20:37)
[2020-01-07] MEDS: FUROSEMIDE 40 MG TABLET PO SCH (08:32)
[2020-01-07] MEDS: SPIRONOLACTONE 25 MG TAB PO SCH ×2 (08:32→20:37)
[2020-01-07] MEDS: FOLIC ACID 1 MG TABLET PO SCH (08:32)
[2020-01-07] MEDS: PANTOPRAZOLE SODIUM 40 MG TABLET.DR PO SCH (08:32)
[2020-01-07] MEDS: PHYTONADIONE 10 MG/1 ML AMP SQ SCH (08:33)
[2020-01-07] MEDS: LIDOCAINE 5% TOPICAL PATCH TP SCH (08:34)
[2020-01-07] MEDS: RIFAXIMIN 200 MG TABLET PO SCH ×3 (08:42→20:36)
--- NOTE | 2020-01-07 11:00 | NUR ---
SPOKE W PATIENT'S MPOA RE DC PLANS RE: CHECKING RE HOSPICE BENEFITS- UNABLE TO VERIFY AT THIS TIME- THURSDAY; IF NO HOSPICE BENEFIT, SUGGESTED POSSIBLE OF [facility] [place] OR HERE IN [facility]. ALSO- IT IS POSSIBLE THAT BECAUSE HER EXCHANGE INSURANCE IS LOCAL PRODUCT, IF SHE RELOCATES SHE CAN QUALIFY FOR AN INSURANCE CHANGE? ADVISED MPOA THAT EMAIL WOULD BE SENT TO FINANCIAL HYDRATION PLANT OPERATOR TO ASK. ADVISED MPOA PT CURRENTLY OF O2 AND OXYGEN LEVELS ARE GOOD. CM TO FOLLOW. Addendum: 01/08/20 at 0850 by ANNABEL RUFFIN RN CM Amended: Links added.
[2020-01-07 11:15] VITALS: BP 135/65
[2020-01-07 16:28] VITALS: BP 135/62
[2020-01-07 19:41] VITALS: BP 146/71
[2020-01-07 23:32] VITALS: BP 138/68
[2020-01-08 03:28] VITALS: BP 140/70
[2020-01-08] MEDS: IPRATROPIUM/ALBUTEROL SULFATE 3 ML SOLUTION IH PRN ×2 (07:13→18:28)
[2020-01-08] MEDS: CEFTRIAXONE SODIUM 2 GM VIAL IVP SCH (08:57)
[2020-01-08] MEDS: THIAMINE HCL 100 MG/ML 2ML VIAL IVP SCH (08:57)
[2020-01-08 08:58] VITALS: BP 151/77
[2020-01-08] MEDS: LIDOCAINE 5% TOPICAL PATCH TP SCH (08:58)
[2020-01-08] MEDS: PANTOPRAZOLE SODIUM 40 MG TABLET.DR PO SCH (08:58)
[2020-01-08] MEDS: LACTULOSE 20 GM/30 ML UDCUP PO SCH ×3 (08:58→20:51)
[2020-01-08] MEDS: PHYTONADIONE 10 MG/1 ML AMP SQ SCH (08:58)
[2020-01-08] MEDS: FOLIC ACID 1 MG TABLET PO SCH (08:59)
[2020-01-08] MEDS: SPIRONOLACTONE 25 MG TAB PO SCH ×2 (08:59→20:50)
[2020-01-08] MEDS: FUROSEMIDE 40 MG TABLET PO SCH ×2 (08:59→20:51)
[2020-01-08] MEDS: RIFAXIMIN 200 MG TABLET PO SCH ×3 (08:59→20:50)
[2020-01-08 11:45] VITALS: BP 149/69
[2020-01-08 16:11] VITALS: BP 147/72
[2020-01-08 20:05] VITALS: BP 130/58
[2020-01-08 23:25] VITALS: BP 140/69
[2020-01-09 04:46] VITALS: BP 143/74
[2020-01-09 05:50] LABS: INR 1.31 (0.85-1.15)
[2020-01-09 06:12] LABS: EOSINOPHILS % (AUTO) 4.3 % (0.0-8.0); LYMPHOCYTES % (AUTO) 18.1 % (21.0-51.0); MEAN CORPUSCULAR HEMOGLOBIN 35.1 pg (27.0-33.0); MEAN CORPUSCULAR HGB CONC 34.3 g/dL (32.0-36.0); MEAN CORPUSCULAR VOLUME 102.5 fL (79-99); MONOCYTES % (AUTO) 8.1 % (3.0-13.0); NEUTROPHILS % (AUTO) 64.6 % (40.0-77.0); PLATELET COUNT (AUTO) 72 K/uL (130-400); RED BLOOD CELL COUNT(AUTO) 2.02 MIL/uL (4.00-5.50); RED CELL DISTRIBUTION WIDTH 30.9 % (11.0-15.5); WHITE BLOOD COUNT (AUTO) 5.1 K/uL (4.8-10.8)
[2020-01-09 06:23] LABS: ALBUMIN 2.7 g/dL (3.5-5.0); BILIRUBIN,TOTAL 5.7 mg/dL (0.2-1.0); CREATININE 0.9 mg/dL (0.5-1.5); HEMATOCRIT 20.7 % (36-48); POTASSIUM 3.7 mmol/L (3.5-5.1); TOTAL PROTEIN, SERUM 6.2 g/dL (6.0-8.3)
[2020-01-09] MEDS: IPRATROPIUM/ALBUTEROL SULFATE 3 ML SOLUTION IH PRN ×2 (06:37→18:32)
[2020-01-09 06:59] LABS: B-TYPE NATRIURETIC PEPTIDE 1600 pg/mL (0-100)
[2020-01-09 08:00] VITALS: BP 158/88
[2020-01-09] MEDS: MAGNESIUM 2GM PREMIX 50ML 50 ML IV PRN (09:03)
--- NOTE | 2020-01-09 09:46 | NUR ---
Power of Airline Reservation Agent SW met with patient's Medical Power of Airline Reservation Agent, Yoko Prado, . Copy of Medical Power of Airline Reservation Agent in chart. LILIANA on paperwork is Jose Miguel Du but Ms. Du resigned LILIANA on 01/03/2020. Copy of Agent Resignation for LILIANA in chart. [facility] also provided copy of Durable POA and informed SW that Spencer Hansen is Durable POA.and lives locally. [facility] informed SW that she wanted to sign In Hospital Do Not Resuscitate but was not ready to sign Out of Hospital Do Not Resuscitate. Patient's nurse, Sonia made aware. LILIANA also stated that she wanted to speak to Dr. Benton once again before making decision to proceed with hospice at [facility]. LILIANA stated if she proceeds with hospice at local [facility], plan will be for LILIANA to find a comfort home in area where she lives in [place] and come and transfer patient to that facility. LILIANA again stated that she wanted to speak to MD first before making final decision. [facility] also spoke with ANA, Katerina Nugent. Patient's nurse, Sonia, aware of above information. SW will continue to follow up. Demographic sheet updated with correct emergency contacts.
--- NOTE | 2020-01-09 09:53 | NUR ---
DNR FORM SIGNED.
[2020-01-09] MEDS: RIFAXIMIN 200 MG TABLET PO SCH ×3 (10:19→20:27)
[2020-01-09] MEDS: SPIRONOLACTONE 25 MG TAB PO SCH ×2 (10:19→20:27)
[2020-01-09] MEDS: LACTULOSE 20 GM/30 ML UDCUP PO SCH ×3 (10:20→20:27)
[2020-01-09] MEDS: PANTOPRAZOLE SODIUM 40 MG TABLET.DR PO SCH (10:20)
[2020-01-09] MEDS: THIAMINE HCL 100 MG/ML 2ML VIAL IVP SCH (10:20)
[2020-01-09] MEDS: FUROSEMIDE 40 MG TABLET PO SCH ×2 (10:20→20:27)
[2020-01-09] MEDS: FOLIC ACID 1 MG TABLET PO SCH (10:20)
[2020-01-09] MEDS: LIDOCAINE 5% TOPICAL PATCH TP SCH (10:21)
[2020-01-09] MEDS: CEFTRIAXONE SODIUM 2 GM VIAL IVP SCH (10:21)
[2020-01-09] MEDS: PHYTONADIONE 10 MG/1 ML AMP SQ SCH (10:21)
[2020-01-09 11:57] VITALS: BP 144/69
--- NOTE | 2020-01-09 12:57 | NUR ---
DCP: [facility] Malachi spoke to LILIANA Yoko Wislon [phone]. Informed LILIANA that MD has ordered hospice with dc when arrangements made. Discussed local options until LILIANA is able to make other arrangements in [place], [place] where LILIANA lives. LILIANA is open to [facility] with [facility] until she is able to make other arrangements. Malachi informed LILIANA that pt's Obamacare plan does not convert to Medicare with hospice, therefore, if her plan does not have hospice benefits, pt would be a self pay/eb case for hospice services. Explained to MPORoger that Lisa will run benefits and let MPORoger know coverage, so that she ([facility] knows what pt has when talking to agencies in [place]. LILIANA voiced understanding. LILIANA is aware that Lisa from [facility] will be calling her and make arrangements to email paperwork to [facility] for signature. MALACHI spoke to Lisa and made referral. Pt info faxed to Lisa office
--- NOTE | 2020-01-09 13:30 | NUR ---
DR. THORNTON IN TO SEE PT. NO NEW ORDERS. PENDING ON HOSPICE ACCEPTANCE.
--- NOTE | 2020-01-09 14:00 | NUR ---
PO 1400 CINDY MEDS HELD, PT VERY SLEEPY , UNABLE TO SWALLOW MEDS.
--- NOTE | 2020-01-09 14:54 | NUR ---
[facility] Re[facility] recd call from [facility]. [facility] has no beds at this time, pt on waiting list. Lisa still working on benefit verification
[2020-01-09 16:00] VITALS: BP 143/71
--- NOTE | 2020-01-09 16:13 | NUR ---
RD FOLLOW UP Pt with depressive demeanor. Upon visit, Pt requests to talk at another time. PO at 0%. Pt with History of depression. Recommend to consider appetite stimulant as medically feasible. Pt with modified diet and nutritional supplement in place. RD to monitor daily. Addendum: 01/09/20 at [address] Amended: Links added.
[2020-01-09 20:00] VITALS: BP 145/68
[2020-01-10] VITALS: BP 145/62
[2020-01-10 04:00] VITALS: BP 143/67
[2020-01-10 05:52] LABS: BASOPHILS % (AUTO) 0.4 % (0.0-5.0); EOSINOPHILS % (AUTO) 3.9 % (0.0-8.0); LYMPHOCYTES % (AUTO) 18.6 % (21.0-51.0); MEAN CORPUSCULAR HEMOGLOBIN 33.3 pg (27.0-33.0); MEAN CORPUSCULAR HGB CONC 32.9 g/dL (32.0-36.0); MEAN CORPUSCULAR VOLUME 101.4 fL (79-99); MONOCYTES % (AUTO) 9.7 % (3.0-13.0); NEUTROPHILS % (AUTO) 64.8 % (40.0-77.0); NUCLEATED RED BLOOD CELLS 0.3 % (0.0-0.19); PLATELET COUNT (AUTO) 81 K/uL (130-400); RED BLOOD CELL COUNT(AUTO) 2.07 MIL/uL (4.00-5.50); RED CELL DISTRIBUTION WIDTH 30.8 % (11.0-15.5); WHITE BLOOD COUNT (AUTO) 6.9 K/uL (4.8-10.8)
[2020-01-10] MEDS: IPRATROPIUM/ALBUTEROL SULFATE 3 ML SOLUTION IH PRN ×2 (06:22→18:15)
[2020-01-10 06:39] LABS: ALBUMIN 2.5 g/dL (3.5-5.0); BILIRUBIN,TOTAL 5.6 mg/dL (0.2-1.0); CREATININE 0.9 mg/dL (0.5-1.5); POTASSIUM 3.3 mmol/L (3.5-5.1); TOTAL PROTEIN, SERUM 5.9 g/dL (6.0-8.3)
[2020-01-10 07:25] LABS: HEMATOCRIT 22.7 % (36-48)
[2020-01-10 08:00] VITALS: BP 146/74
[2020-01-10] MEDS: LIDOCAINE 5% TOPICAL PATCH TP SCH (09:00)
--- NOTE | 2020-01-10 09:26 | NUR ---
NO BEDS AT [facility] today Eric spoke to Jazz at [facility], They are full. Pt on waiting list. Asked Jazz if they work with [facility], she said she does. Eric spoke to Jim at [facility] [phone]. He is not sure they are in network and would need referral.
[2020-01-10] MEDS: THIAMINE HCL 100 MG/ML 2ML VIAL IVP SCH (11:08)
[2020-01-10] MEDS: FOLIC ACID 1 MG TABLET PO SCH (11:11)
[2020-01-10] MEDS: FUROSEMIDE 40 MG TABLET PO SCH ×2 (11:12→20:36)
[2020-01-10] MEDS: PANTOPRAZOLE SODIUM 40 MG TABLET.DR PO SCH (11:12)
[2020-01-10] MEDS: SPIRONOLACTONE 25 MG TAB PO SCH ×2 (11:12→20:36)
[2020-01-10] MEDS: RIFAXIMIN 200 MG TABLET PO SCH ×3 (11:12→20:36)
[2020-01-10] MEDS: LACTULOSE 20 GM/30 ML UDCUP PO SCH ×3 (11:22→20:36)
[2020-01-10 11:57] VITALS: BP 140/65
--- NOTE | 2020-01-10 13:20 | NUR ---
[facility] Sw spoke to pt's LILIANA Wilson. Explained that per [employer] [employer], [facility] is only agency in network. [facility] is agreeable to making referral to [facility] to see if they are in fact in network. [facility] also made aware that [facility] currently has no beds and patient is on waiting list. Referral was faxed to Jim at [facility] [phone] Sw confirmed with Jim that fax was recd. Jim to call back after checking benefits.
--- NOTE | 2020-01-10 15:17 | NUR ---
RD UPDATE Pt terminally ill, hospice being considered as per EMR. Recommend appetite stimulant, Ensure BID. Please notify RD as additional nutrition concerns arise. Thank you.
[2020-01-10 16:00] VITALS: BP 146/61
[2020-01-10 20:00] VITALS: BP 143/68
[2020-01-11] VITALS: BP 139/63
[2020-01-11 04:00] VITALS: BP 143/65
[2020-01-11 05:24] LABS: BASOPHILS % (AUTO) 0.8 % (0.0-5.0); EOSINOPHILS % (AUTO) 5.1 % (0.0-8.0); LYMPHOCYTES % (AUTO) 21.2 % (21.0-51.0); MEAN CORPUSCULAR HGB CONC 32.4 g/dL (32.0-36.0); MONOCYTES % (AUTO) 9.5 % (3.0-13.0); NEUTROPHILS % (AUTO) 59.9 % (40.0-77.0); NUCLEATED RED BLOOD CELLS 0.3 % (0.0-0.19); PLATELET COUNT (AUTO) 83 K/uL (130-400); RED BLOOD CELL COUNT(AUTO) 2.03 MIL/uL (4.00-5.50); RED CELL DISTRIBUTION WIDTH 31.1 % (11.0-15.5); WHITE BLOOD COUNT (AUTO) 6.6 K/uL (4.8-10.8)
[2020-01-11 05:53] LABS: ALBUMIN 2.3 g/dL (3.5-5.0); BILIRUBIN,TOTAL 5.4 mg/dL (0.2-1.0); CREATININE 0.9 mg/dL (0.5-1.5); TOTAL PROTEIN, SERUM 5.6 g/dL (6.0-8.3)
[2020-01-11] MEDS: IPRATROPIUM/ALBUTEROL SULFATE 3 ML SOLUTION IH PRN ×2 (06:20→19:13)
[2020-01-11 06:22] LABS: HEMATOCRIT 20.7 % (36-48)
[2020-01-11 06:36] LABS: POTASSIUM 2.9 mmol/L (3.5-5.1)
[2020-01-11 08:13] VITALS: BP 146/63
[2020-01-11] MEDS: LACTULOSE 20 GM/30 ML UDCUP PO SCH ×6 (09:00→23:25)
[2020-01-11] MEDS: LIDOCAINE 5% TOPICAL PATCH TP SCH (09:00)
--- NOTE | 2020-01-11 10:11 | NUR ---
f/u SW visited with pt who states she needs to leave to [place] this am. Pt states she has an appt with [employer], she will only be gone 20 minutes. Explained to pt that she is not safe to drive. Pt stated she can call a friend to take her. Pt states that her cell phone is not working (Iphone is disabled) from multiple attempts to unlock. [facility], pt #6 on waiting list. Sw called [facility], spoke to Jim. He has spoken to Tre[facility] and they are in network. [facility] liaison has been in touch with LILIANA Winter and will be sending consent paperwork via email for signature. DCP Pending bed. Sw called LILIANA Babcock and updated her on dcp. Yoko working on securing a local hospice today.
[2020-01-11] MEDS: FOLIC ACID 1 MG TABLET PO SCH (11:20)
[2020-01-11] MEDS: PANTOPRAZOLE SODIUM 40 MG TABLET.DR PO SCH (11:20)
[2020-01-11] MEDS: RIFAXIMIN 200 MG TABLET PO SCH ×3 (11:20→21:27)
[2020-01-11] MEDS: THIAMINE HCL 100 MG/ML 2ML VIAL IVP SCH (11:21)
[2020-01-11] MEDS: SPIRONOLACTONE 25 MG TAB PO SCH ×2 (11:21→21:27)
[2020-01-11 11:22] VITALS: BP 132/69
[2020-01-11] MEDS: FUROSEMIDE 40 MG TABLET PO SCH ×2 (11:22→21:27)
[2020-01-11] MEDS: POTASSIUM CHLORIDE 20 MEQ ERTAB PO PRN ×2 (11:24→18:15)
[2020-01-11 16:16] VITALS: BP 148/62
[2020-01-11] MEDS: LIDOCAINE HCL-MPF 1% 2ML VIAL IV PRN (18:15)
[2020-01-11] MEDS: POTASSIUM CHLORIDE 20MEQ/100ML 100 ML IV PRN (18:15)
[2020-01-11 20:00] VITALS: BP 144/70
[2020-01-12] VITALS: BP 148/68
[2020-01-12 04:00] VITALS: BP 158/76
[2020-01-12] MEDS: IPRATROPIUM/ALBUTEROL SULFATE 3 ML SOLUTION IH PRN ×2 (06:55→18:52)
[2020-01-12 08:19] VITALS: BP 139/63
[2020-01-12] MEDS: LIDOCAINE 5% TOPICAL PATCH TP SCH (09:00)
[2020-01-12] MEDS: THIAMINE HCL 100 MG/ML 2ML VIAL IVP SCH (09:00)
--- NOTE | 2020-01-12 09:51 | NUR ---
[facility] HAVE HAS BED MALACHI called [facility] and they currently have beds. They are currently contacting hospice agencies with people on waiting list. MALACHI called [facility] to verify that they have consents from [facility]. Jim to verify they are ready on their end. Malachi recd call From Farooq [phone] at [facility]. They have recd all consents from [facility]. Discussed OOHDNR. Farooq to reach out to Yoko and see if she will now sign.
[2020-01-12] MEDS: FUROSEMIDE 40 MG TABLET PO SCH ×2 (11:25→20:34)
[2020-01-12] MEDS: PANTOPRAZOLE SODIUM 40 MG TABLET.DR PO SCH (11:25)
[2020-01-12] MEDS: RIFAXIMIN 200 MG TABLET PO SCH ×3 (11:25→20:34)
[2020-01-12] MEDS: LACTULOSE 20 GM/30 ML UDCUP PO SCH ×3 (11:26→20:34)
[2020-01-12] MEDS: FOLIC ACID 1 MG TABLET PO SCH (11:26)
[2020-01-12] MEDS: SPIRONOLACTONE 25 MG TAB PO SCH ×2 (11:26→20:34)
[2020-01-12 11:52] VITALS: BP 156/79
[2020-01-12 16:05] VITALS: BP 155/73
--- NOTE | 2020-01-12 16:18 | NUR ---
SPOKE TO DUNIA AT [facility]. Pt was placed on waiting list at [facility] as well. MPOA to fax OOHDNR to MALACHI for MD signature.
[2020-01-12 20:00] VITALS: BP 143/63
--- NOTE | 2020-01-12 20:20 | NUR ---
PATIENT RECEIVED IN BED, CONTINUES TO BE ORIENTED ONLY TO SELF. PENDING PLACEMENT WITH HOSPICE, PLEASE REFER TO SW NOTES. PT IN NO ACUTE DISTRESS, DENIES PAIN. PATIENT IS COOPERATIVE WITH CARE. BED ALARM IN PLACE AND ALL SIDE RAILS UP. WILL CONT TO MONITOR. PATIENT IS DNR.
[2020-01-13] VITALS: BP 152/72
[2020-01-13 04:00] VITALS: BP 148/73
[2020-01-13 08:00] VITALS: BP 124/72
[2020-01-13] MEDS: FOLIC ACID 1 MG TABLET PO SCH (09:40)
[2020-01-13] MEDS: RIFAXIMIN 200 MG TABLET PO SCH ×3 (09:40→20:47)
[2020-01-13] MEDS: SPIRONOLACTONE 25 MG TAB PO SCH ×2 (09:40→20:47)
[2020-01-13] MEDS: PANTOPRAZOLE SODIUM 40 MG TABLET.DR PO SCH (09:40)
[2020-01-13] MEDS: THIAMINE HCL 100 MG/ML 2ML VIAL IVP SCH (09:41)
[2020-01-13] MEDS: FUROSEMIDE 40 MG TABLET PO SCH ×2 (09:41→20:48)
[2020-01-13] MEDS: LACTULOSE 20 GM/30 ML UDCUP PO SCH ×3 (09:41→20:46)
[2020-01-13] MEDS: LIDOCAINE 5% TOPICAL PATCH TP SCH (09:42)
--- NOTE | 2020-01-13 09:48 | NUR ---
DCP: No beds at [facility] Eric spoke to Farooq at [facility]. He is still working on getting OOHDNR from [facility]. He discussed possible placement at [facility]. [facility] not agreeable, only wants [facility]. [facility] stated to Farooq she is not giving consent for anywhere except [facility]. Cm informed
[2020-01-13 12:17] VITALS: BP 161/96
--- NOTE | 2020-01-13 14:20 | NUR ---
RD FOLLOW UP PT CONTINUES WITH POOR PO 0% AND APPETITE. SHE IS BEING EVALUATED FOR HOSPICE AT THIS TIME. LABS REVIEWED. MEDS REVIEWED. POOR PROGNOSIS IS NOTED. SKIN IS INTACT. RECOMMEND AN APPETITE STIMULANT MEDICALLY FEASIBLE. MONITOR PO INTAKE AND WEIGHT CHANGES. RD WILL CONTINUE TO MONITOR AND FOLLOW UP, THANK YOU. Addendum: 01/13/20 at [address] Amended: Links added.
[2020-01-13 16:00] VITALS: BP 140/60
[2020-01-13 20:00] VITALS: BP 153/82
[2020-01-13] MEDS: TEMAZEPAM 7.5 MG CAPSULE PO PRN (20:47)
[2020-01-14] VITALS (7 sets, daily range): BP systolic 142–160; BP diastolic 65–75
--- NOTE | 2020-01-14 04:00 | NUR ---
ASSUME CARE ASSUME CARE FOR PT AT THIS TIME. PT CALM IN BED. NO S/S OF DISTRESS.
[2020-01-14] MEDS: LACTULOSE 20 GM/30 ML UDCUP PO SCH ×3 (09:00→19:23)
[2020-01-14] MEDS: LIDOCAINE 5% TOPICAL PATCH TP SCH (09:00)
[2020-01-14] MEDS: THIAMINE HCL 100 MG/ML 2ML VIAL IVP SCH (10:01)
[2020-01-14] MEDS: FUROSEMIDE 40 MG TABLET PO SCH ×2 (10:01→19:24)
[2020-01-14] MEDS: FOLIC ACID 1 MG TABLET PO SCH (10:02)
[2020-01-14] MEDS: RIFAXIMIN 200 MG TABLET PO SCH ×3 (10:02→19:24)
[2020-01-14] MEDS: PANTOPRAZOLE SODIUM 40 MG TABLET.DR PO SCH (10:03)
[2020-01-14] MEDS: SPIRONOLACTONE 25 MG TAB PO SCH ×2 (10:03→19:23)
--- NOTE | 2020-01-15 03:40 | NUR ---
patient refused bed bath
[2020-01-15 04:01] VITALS: BP 140/59
[2020-01-15 07:37] VITALS: BP 139/72
[2020-01-15] MEDS: FUROSEMIDE 40 MG TABLET PO SCH (09:00)
[2020-01-15] MEDS: LIDOCAINE 5% TOPICAL PATCH TP SCH (09:00)
[2020-01-15] MEDS: LACTULOSE 20 GM/30 ML UDCUP PO SCH ×2 (09:00→19:20)
[2020-01-15] MEDS: PANTOPRAZOLE SODIUM 40 MG TABLET.DR PO SCH (09:00)
[2020-01-15 12:12] VITALS: BP 143/68
[2020-01-15] MEDS: RIFAXIMIN 200 MG TABLET PO SCH ×3 (12:48→19:20)
[2020-01-15] MEDS: SPIRONOLACTONE 25 MG TAB PO SCH ×2 (12:50→19:20)
[2020-01-15] MEDS: FOLIC ACID 1 MG TABLET PO SCH (12:51)
[2020-01-15] MEDS: THIAMINE HCL 100 MG/ML 2ML VIAL IVP SCH (12:51)
[2020-01-15 17:03] VITALS: BP 152/78
[2020-01-15] MEDS: TEMAZEPAM 7.5 MG CAPSULE PO PRN (19:20)
[2020-01-15 19:35] VITALS: BP 150/61
[2020-01-15 23:36] VITALS: BP 166/84
[2020-01-16 03:47] VITALS: BP 147/76
[2020-01-16 07:24] VITALS: BP 155/77
--- NOTE | 2020-01-16 09:25 | NUR ---
HOSPICE HOME PLACEMENT SW spoke to Farooq Fuller, Office Support Associate for [facility], he informed SW that they are still trying to find a bed for patient. Patient is 5th on waiting list at [facility]. SW spoke to Jessie Villagran, Director at [facility] and she informed SW that she is not sure if they will be able to accept patient. Ms. Villagran informed SW that their board is meeting in an hour to discuss next step due to CoronaVirus epidemic. She stated that SW could call later this afternoon and check status. SW contacted [facility] for availability of beds and was informed by Bev, [facility] employee, that they are not taking any patients at this time. SW will follow up with [facility] as next step regarding placement. Katerina PEREZ made aware.
[2020-01-16] MEDS: LACTULOSE 20 GM/30 ML UDCUP PO SCH ×3 (09:54→19:43)
[2020-01-16] MEDS: RIFAXIMIN 200 MG TABLET PO SCH ×3 (09:55→19:43)
[2020-01-16] MEDS: PANTOPRAZOLE SODIUM 40 MG TABLET.DR PO SCH (09:56)
[2020-01-16] MEDS: FUROSEMIDE 40 MG TABLET PO SCH ×2 (09:56→19:44)
[2020-01-16] MEDS: SPIRONOLACTONE 25 MG TAB PO SCH ×2 (09:56→19:43)
[2020-01-16] MEDS: FOLIC ACID 1 MG TABLET PO SCH (09:56)
[2020-01-16] MEDS: LIDOCAINE 5% TOPICAL PATCH TP SCH (09:57)
[2020-01-16] MEDS: THIAMINE HCL 100 MG/ML 2ML VIAL IVP SCH (09:57)
[2020-01-16 11:17] VITALS: BP 153/75
[2020-01-16 15:32] VITALS: BP 148/69
--- NOTE | 2020-01-16 17:05 | NUR ---
CM NOTE PER SOPHIA SENIOR INTEGRATION DEVELOPER, POSSIBLE DC TO [facility] WITH [facility]. EMS REQUEST FORM FAXED FOR POSSIBLE DC TOMORROW 01/17/20 PLANNED. NURSE MERI WELLS, INFORMED OF DISCHARGE TO HAPPEN PRIOR TO 12PM D/T PATIENT NEEDS TO BE ADMITTED AT [facility] BEFORE 3PM. CORNELL WELLS, DIRECTOR OR MEDSURG INFORMED WELL, VERBALIZED UNDERSTANDING.
--- NOTE | 2020-01-16 17:46 | NUR ---
[facility] [place] HOME PLACEMENT & OUT OF HOSPITAL DNR SW spoke with patient's MPOA, Yoko Prado, regarding [facility] not accepting patients until next week. Patient is still #5 on waiting list. MALACHI also notified Ms. Prado that [facility] in [place] was not accepting patients at this time. MALACHI did inform Ms. Prado that [facility] was accepting patient and had a bed. Ms. Prado provided verbal consent and BRIAN/Choice was completed and placed in chart. MALACHI contacted Farooq Fuller, [place] [employer] Clerk and informed him that [facility] had provided consent for patient to be referred to [facility]. Farooq informed MALACHI that he would send patient's paperwork to [facility] for review. Pending acceptance at this time. LILIANA signed Out of Hospital Do Not Resuscitate and Dr. Benton also signed form. Out of Hospital DNR placed in chart. Copy will be sent to [facility] now that MD has signed. If accepted patient will be discharged on 01/17/2020 via ambulance. Patient must be at [facility] by 3:00pm. Katerina PEREZ and patient's nurse, Dave made aware.
[2020-01-16] MEDS: TEMAZEPAM 7.5 MG CAPSULE PO PRN (19:43)
[2020-01-16 20:18] VITALS: BP 165/84
[2020-01-16] MEDS: POTASSIUM CHLORIDE 10% ELIXIR 20 MEQ/15 ML UDCUP PO PRN (22:57)
[2020-01-16] MEDS: LIDOCAINE HCL-MPF 1% 2ML VIAL IV PRN (23:08)
[2020-01-16] MEDS: POTASSIUM CHLORIDE 20MEQ/100ML 100 ML IV PRN (23:09)
[2020-01-16] MEDS ORDERED: HYDRALAZINE HCL 20 MG/ML VIAL ONE (23:29)
[2020-01-16] MEDS ORDERED: HYDRALAZINE HCL 20 MG/ML VIAL IV PRN (23:30)
[2020-01-16 23:40] VITALS: BP 178/77
[2020-01-17] VITALS (7 sets, daily range): BP systolic 129–161; BP diastolic 50–81
[2020-01-17] MEDS: POTASSIUM CHLORIDE 20MEQ/100ML 100 ML IV PRN (03:03)
--- NOTE | 2020-01-17 08:53 | NUR ---
[facility] SW spoke to Chris Darden Slide Fasteners Inspector, and he informed MALACHI that patient is still pending acceptance by [facility]. If accepted patient will need to be there by 3pm. MALACHI will continue to follow up. Out of Hospital DNR copy faxed to Farooq at .
[2020-01-17] MEDS: FUROSEMIDE 40 MG TABLET PO SCH ×2 (09:00→22:15)
[2020-01-17] MEDS: FOLIC ACID 1 MG TABLET PO SCH (09:00)
[2020-01-17] MEDS: RIFAXIMIN 200 MG TABLET PO SCH ×3 (09:00→22:15)
[2020-01-17] MEDS: THIAMINE HCL 100 MG/ML 2ML VIAL IVP SCH (09:00)
[2020-01-17] MEDS: SPIRONOLACTONE 25 MG TAB PO SCH ×2 (09:00→22:14)
[2020-01-17] MEDS: LACTULOSE 20 GM/30 ML UDCUP PO SCH ×3 (09:00→22:14)
[2020-01-17] MEDS: PANTOPRAZOLE SODIUM 40 MG TABLET.DR PO SCH (14:29)
--- NOTE | 2020-01-17 15:34 | NUR ---
RD FOLLOW UP Upon visit, Pt asleep, attempt to arouse X3 but snoring soundly. no family at bedside. Hospice in place. Pt with poor PO intake, Ensure in place. Recommend to add 30mL ProMod TID, with meals. Recommend appetite stimulant as medically feasible. Fluid restriction in place as per EMR. RD to continue to monitor. Please notify as additional nutrition concerns arise. Thank you. Addendum: 01/17/20 at [address] Amended: Links added.
[2020-01-18 03:40] VITALS: BP 155/73
[2020-01-18 08:00] VITALS: BP 159/70
--- NOTE | 2020-01-18 09:30 | NUR ---
COMFORT HOME FOLLOW UP SW received a call from Farooq Fuller with [facility]. He informed SW that he had called twice this morning to follow up on pending acceptance of patient at [facility]. Both times he was told that Explosives Operator was in meeting. Farooq will continue to follow up. MALACHI will speak to patient's MPOA about alternative placement in case [facility] denies patient. ANA, Katerina Nugent, made aware.
[2020-01-18 12:00] VITALS: BP 142/63
--- NOTE | 2020-01-18 12:10 | NUR ---
[facility] MALACHI contacted [facility] and spoke with Mimi. She informed SW that they were waiting for [facility] to provide Certificate of Terminal Illness with hospice MD's signature. Mimi stated that once complete paperwork was received, they would proceed with attempting to admit patient to [facility]. Mimi informed SW that there was waiting list. MALACHI informed Mimi that MALACHI had spoken to Farooq, Railroad Accountant for [facility] at the beginning of week and he had informed SW that there were beds available. Mimi stated she would need to look at list and let SW know later. MALACHI called Farooq Fuller with [facility] and informed him of what Mimi had stated. He informed MALACHI that he thought all paperwork was already complete but he would follow up and let SW know. MALACHI will continue to work with hospice regarding appropriate and safe discharge for patient. ANA, Katerina Nugent, made aware.
--- NOTE | 2020-01-18 15:27 | NUR ---
Placement SW contacted patient's MPOA, Yoko Prado and informed her that acceptance at [facility] was still pending. SW informed Ms. Prado that [facility] would accept patients under hospice and provided contact information for yoghurt maker, [place]. BRIAN/Choice completed for [facility] in case [facility] decides to have patient sent to facility. Patient's nurse, Sonia and CM, Katerina Nugent, made aware. MALACHI later received a call from Elin Dardenah Inspector Watch [employer] and he informed SW that [facility] had informed him that they had bed available for patient but wanted updated paperwork sent to their facility. Farooq stated that information was being sent and plan was for patient to be discharged on 01/19/2020. SW contacted patient's [facility] and informed of update. [facility] that [facility] preferred patient go to [facility]. Patient's nurse and CM also made aware of update.
[2020-01-18 16:00] VITALS: BP 146/69
[2020-01-18 19:53] VITALS: BP 150/69
[2020-01-18] MEDS: FUROSEMIDE 40 MG TABLET PO SCH (22:25)
[2020-01-18] MEDS: LACTULOSE 20 GM/30 ML UDCUP PO SCH (22:25)
[2020-01-18] MEDS: SPIRONOLACTONE 25 MG TAB PO SCH (22:27)
[2020-01-18] MEDS: RIFAXIMIN 200 MG TABLET PO SCH (22:27)
[2020-01-18 23:30] VITALS: BP 151/70
[2020-01-19 04:00] VITALS: BP 141/78
[2020-01-19 08:00] VITALS: BP 146/72
[2020-01-19] MEDS: FOLIC ACID 1 MG TABLET PO SCH ×2 (09:00→10:24)
[2020-01-19] MEDS: LIDOCAINE 5% TOPICAL PATCH TP SCH ×2 (09:00→10:26)
[2020-01-19] MEDS: THIAMINE HCL 100 MG/ML 2ML VIAL IVP SCH ×2 (09:00→10:26)
[2020-01-19] MEDS: FUROSEMIDE 40 MG TABLET PO SCH ×2 (09:00→20:58)
[2020-01-19] MEDS: PANTOPRAZOLE SODIUM 40 MG TABLET.DR PO SCH (10:25)
[2020-01-19] MEDS: RIFAXIMIN 200 MG TABLET PO SCH ×2 (10:25→20:58)
[2020-01-19] MEDS: LACTULOSE 20 GM/30 ML UDCUP PO SCH ×2 (10:25→20:58)
[2020-01-19] MEDS: SPIRONOLACTONE 25 MG TAB PO SCH ×2 (10:26→20:59)
[2020-01-19 11:58] VITALS: BP 149/70
--- NOTE | 2020-01-19 13:43 | NUR ---
[facility] received a call from Farooq Fuller with [facility]. He informed that patient was accepted and could be transferred today. Yoko FORD notified. LILIANA requesting to speak to MD for update. Patient will be transferred via ambulance.
[2020-01-19 16:00] VITALS: BP 156/77
--- NOTE | 2020-01-19 16:47 | NUR ---
DISCHARGE DELAY [facility] informed Katerina PEREZ, that not all DME was delivered and patient could not arrive after 4pm today. MALACHI contacted Farooq Fuller with [facility] regarding DME and was informed that DME was available but if patient was not able to reach [facility] by 4pm then discharge would need to wait until 01/20/2020. As per Farooq, [facility] starts receiving patients at 10am. Patient's nurse, Katerina PEREZ and CM Director, Bonnie Wright, and Case Worker, [place], made aware of plan discharge for 01/20/2020.
[2020-01-19 20:00] VITALS: BP 151/74
--- NOTE | 2020-01-19 20:26 | NUR ---
Nursing Note Offered Pt her medications. Pt refused her meds at this time, pt stated she wanted to wait a little while. Pt also stated she is not in no pain. Informed the pt I would ask again in a little while. She stated "okay"
[2020-01-20] VITALS: BP 156/66
[2020-01-20 04:00] VITALS: BP 148/68
[2020-01-20 08:15] VITALS: BP 156/76
--- NOTE | 2020-01-20 08:28 | NUR ---
Called and provided report to Chelsy Salvador RN with [facility]. Called [facility] in [place] and per aid that answered phone, stated they do not get report.
--- NOTE | 2020-01-20 08:39 | NUR ---
Called [facility] services to notify of lease picker request.
[2020-01-20] MEDS: SPIRONOLACTONE 25 MG TAB PO SCH (09:00)
[2020-01-20] MEDS: LACTULOSE 20 GM/30 ML UDCUP PO SCH (09:00)
[2020-01-20] MEDS: FUROSEMIDE 40 MG TABLET PO SCH (09:00)
[2020-01-20] MEDS: THIAMINE HCL 100 MG/ML 2ML VIAL IVP SCH (09:22)
[2020-01-20] MEDS: RIFAXIMIN 200 MG TABLET PO SCH (09:23)
[2020-01-20] MEDS: LIDOCAINE 5% TOPICAL PATCH TP SCH (09:23)
[2020-01-20] MEDS: FOLIC ACID 1 MG TABLET PO SCH (09:23)
[2020-01-20] MEDS: PANTOPRAZOLE SODIUM 40 MG TABLET.DR PO SCH (09:23)
== END 2020-01-20 11:25 | disposition hospice, home (50) | DRG 241 ==
LOC: EDH 07:52 → EDHIP 10:25 → 2BH 17:10 → 2AH 12-31 11:24 → 3AH 01-02 18:07
PROVIDERS: ADMIT Internal Medicine; ATTEND Internal Medicine
PROC: 0DJ08ZZ Inspection of Upper Intestinal Tract, Via Natural or Artificial Opening Endoscopic (ICD-10-PCS; principal; 2019-12-30)
PROC: 30233N1 Transfusion of Nonautologous Red Blood Cells into Peripheral Vein, Percutaneous Approach (ICD-10-PCS; 2020-01-07)
DX: K29.21 Alcoholic gastritis with bleeding (principal); N17.0 Acute kidney failure with tubular necrosis; G93.41 Metabolic encephalopathy; E43 Unspecified severe protein-calorie malnutrition; D61.818 Other pancytopenia; D68.9 Coagulation defect, unspecified; E87.0 Hyperosmolality and hypernatremia; K72.90 Hepatic failure, unspecified without coma; K70.31 Alcoholic cirrhosis of liver with ascites; E87.1 Hypo-osmolality and hyponatremia; D62 Acute posthemorrhagic anemia; K76.6 Portal hypertension; E87.8 Other disorders of electrolyte and fluid balance, not elsewhere classified; E86.9 Volume depletion, unspecified; E87.6 Hypokalemia; F10.20 Alcohol dependence, uncomplicated; F17.200 Nicotine dependence, unspecified, uncomplicated; J44.9 Chronic obstructive pulmonary disease, unspecified; K82.8 Other specified diseases of gallbladder; S00.03XA Contusion of scalp, initial encounter; E86.1 Hypovolemia; F32.9 Major depressive disorder, single episode, unspecified; G89.29 Other chronic pain; K29.20 Alcoholic gastritis without bleeding; K31.89 Other diseases of stomach and duodenum; N18.9 Chronic kidney disease, unspecified; Z51.5 Encounter for palliative care; Z66 Do not resuscitate; K21.0 Gastro-esophageal reflux disease with esophagitis; K29.00 Acute gastritis without bleeding; Z60.2 Problems related to living alone; D50.9 Iron deficiency anemia, unspecified; W19.XXXA Unspecified fall, initial encounter; Y93.89 Activity, other specified; Y92.89 Other specified places as the place of occurrence of the external cause; Y99.8 Other external cause status; Z68.20 Body mass index [BMI] 20.0-20.9, adult; Z91.14 Patient's other noncompliance with medication regimen; Z91.19 Patient's noncompliance with other medical treatment and regimen; Z80.9 Family history of malignant neoplasm, unspecified
CPT/HCPCS: 36415; 36430; 43235; 70450; 72125; 76700; 80048; 80053; 80305; 81001; 82105; 82140; 82150; 82247; 82270; 82378; 82550; 82607; 82728; 82746; 82948; 83540; 83550; 83605; 83690; 83735; 83880; 84100; 84132; 84145; 84300; 84443; 84484; 84550; 85014; 85018; 85025; 85045; 85060; 85610; 85730; 86316; 86850; 86900; 86901; 86922; 87088; 93005; 94640; 94664; 97039; C9113; G0378; G0480; J0360; J0696; J1940; J2354; J2704; J3411; J3430; J3475; J3480; J3490; J7030; P9016; P9046; P9047